=== PATIENT | male | born 2000 | race Caucasian/White ===

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

== ENCOUNTER → 2021-10-10 | Outpatient (CLI) | payer OTHER ==
[~2021-10-10] MED LIST changes: +ATIV1TAB10 PO; +BUSP5TA PO; +FAMO20TA PO; +FLUO10CA18 PO; +FLUO1TAB3 PO; +FLUO40CA PO; +HYDR50TA70 PO; +MED REC COMMENT; +NICO2GUM41 PO; +OLAN1TAB16 PO; -OLAN5TAB PO; +ZIPR80CA30 PO
== END ==
LOC: M CLY 14:21
PROVIDERS: ATTEND Nurse Practitioner Family
DX: M25.572 Pain in left ankle and joints of left foot (principal); M54.2 Cervicalgia

== ENCOUNTER 2021-10-18 17:12 | Emergency (ER) | payer OTHER ==
[~2021-10-18] VITALS: Ht 180.3 cm; Wt 74.4 kg
[~2021-10-18 17:12] MED LIST changes: -ATIV1TAB10 PO; -BUSP5TA PO; -FAMO20TA PO; -FLUO10CA18 PO; -FLUO1TAB3 PO; -FLUO40CA PO; -HYDR50TA70 PO; -MED REC COMMENT; -NICO2GUM41 PO; -ZIPR80CA30 PO
[2021-10-18] MEDS ORDERED: ATIV1TAB10 PO (17:21)
[2021-10-18] MEDS ORDERED: FLUO10CA18 PO (17:21)
[2021-10-18 17:57] LABS: HEMATOCRIT 44.7 % (42.0-52.0); HEMOGLOBIN 15.9 g/dl (13.5-17.5); MEAN CORPUSCULAR HGB CONC 35.6 g/dl (32.0-36.5); MEAN CORPUSCULAR VOLUME 84.3 fl (80.0-96.0); PLATELET COUNT, AUTOMATED 262 10^3/uL (150-450); WHITE BLOOD COUNT 7.3 10^3/uL (4.0-10.0)
[2021-10-18 18:24] LABS: AMPHETAMINES LEVEL URINE NEGATIVE (NEGATIVE); BARBITURATES URINE NEGATIVE (NEGATIVE); BENZODIAZEPINES URINE NEGATIVE (NEGATIVE); CANNABINOIDS URINE POSITIVE (NEGATIVE); COCAINE METABOLITE URINE NEGATIVE (NEGATIVE); METHADONE URINE NEGATIVE (NEGATIVE); OPIATES URINE NEGATIVE (NEGATIVE); PHENCYCLIDINE URINE NEGATIVE (NEGATIVE)
[2021-10-18 18:29] LABS: RSV AMPLIFICATION NEGATIVE (NEGATIVE)
[2021-10-18 18:33] LABS: ACETAMINOPHEN LEVEL < 2.0 UG/ML (10.0-30.0); ALBUMIN 4.3 GM/DL (3.2-5.2); ALT/SGPT 24 U/L (12-78); BILIRUBIN,DIRECT 0.3 MG/DL (0.0-0.2); BILIRUBIN,TOTAL 0.8 MG/DL (0.2-1.0); BLOOD UREA NITROGEN 7 MG/DL (7-18); CALCIUM LEVEL 9.3 MG/DL (8.5-10.1); CARBON DIOXIDE LEVEL 32 MEQ/L (21-32); CHLORIDE LEVEL 110 MEQ/L (98-107); CREATININE FOR GFR 1.18 MG/DL (0.70-1.30); ETHYL ALCOHOL (ETHANOL) < 0.003 % (0.000-0.010); GLUCOSE, FASTING 89 MG/DL (70-100); POTASSIUM SERUM 3.9 MEQ/L (3.5-5.1); SALICYLATE LEVEL < 1.7 MG/DL (5.0-30.0); SODIUM LEVEL 146 MEQ/L (136-145); THYROID STIMULATING HORMONE 0.728 uIU/ML (0.463-3.98); TOTAL PROTEIN 6.8 GM/DL (6.4-8.2)
[2021-10-18] MEDS: LORazepam 0.5 MG TAB PO SCH (20:59)
[2021-10-18] MEDS ORDERED: MED REC COMMENT (21:16)
[2021-10-18] MEDS ORDERED: HOME MED LIST COMPLETE! XX SCH (21:20)
[2021-10-19] MEDS ORDERED: NICOTINE 21MG/24HR 1 EA TRANSDERMAL TD ONE (07:30)
[2021-10-19] MEDS: LORazepam 0.5 MG TAB PO SCH (08:31)
[2021-10-19 08:48] VITALS: BP 140/90
[2021-10-19] MEDS ORDERED: FLUoxetine 10 MG CAP PO SCH (09:00)
[2021-11-01] MEDS ORDERED: ZIPR80CA30 PO (17:37)
[2021-11-01] MEDS ORDERED: HYDR50TA70 PO (17:37)
[2021-11-01] MEDS ORDERED: FLUO1TAB3 PO (17:37)
[2021-11-01] MEDS ORDERED: NICO2GUM41 PO (18:26)
[2021-11-07] MEDS ORDERED: FLUO40CA PO (10:04)
[2021-11-07] MEDS ORDERED: OLAN1TAB16 PO (10:04)
[2021-11-07] MEDS ORDERED: FAMO20TA PO (10:04)
[2021-11-07] MEDS ORDERED: BUSP5TA PO (10:04)
== END 2021-10-19 08:50 ==
LOC: M ED 17:12
DX: F23 Brief psychotic disorder (principal); R44.0 Auditory hallucinations; R00.1 Bradycardia, unspecified; F19.10 Other psychoactive substance abuse, uncomplicated; F12.10 Cannabis abuse, uncomplicated; F14.10 Cocaine abuse, uncomplicated; F17.290 Nicotine dependence, other tobacco product, uncomplicated; Z88.8 Allergy status to other drugs, medicaments and biological substances

== ENCOUNTER → 2021-11-11 | Outpatient (REF) | payer OTHER ==
[~2021-11-11] MED LIST changes: +ATIV1TAB10 PO; +BUSP5TA PO; +FAMO20TA PO; +FLUO10CA18 PO; +FLUO1TAB3 PO; +FLUO40CA PO; +HYDR50TA70 PO; +MED REC COMMENT; +NICO2GUM41 PO; +ZIPR80CA30 PO
[2021-11-12 11:53] LABS: C REACTIVE PROTEIN QUANTITATIV < 0.30 MG/DL (0.00-0.30); RHEUMATOID FACTOR QUANT < 10.0 IU/ML (<15.0)
== END ==
LOC: M SFHCCLAY 14:34
PROVIDERS: ATTEND Nurse Practitioner Family
DX: R52 Pain, unspecified (principal)

== ENCOUNTER 2021-12-21 22:35 | Emergency (ER) | payer OTHER ==
[~2021-12-21] VITALS: Ht 180.3 cm; Wt 74.4 kg
[2021-12-22 11:26] VITALS: BP 131/59
== END 2021-12-22 11:33 | disposition home or self-care (01) ==
LOC: M ED 22:35
DX: S09.90XA Unspecified injury of head, initial encounter (principal); S50.01XA Contusion of right elbow, initial encounter; Y08.89XA Assault by other specified means, initial encounter; Y93.89 Activity, other specified; Y99.9 Unspecified external cause status; F17.200 Nicotine dependence, unspecified, uncomplicated; F17.290 Nicotine dependence, other tobacco product, uncomplicated; Z88.8 Allergy status to other drugs, medicaments and biological substances

== ENCOUNTER 2022-08-24 19:44 | Emergency (ER) | payer MEDICAID, OTHER ==
[2022-08-24 20:36] LABS: HEMATOCRIT 45.9 % (42.0-52.0); HEMOGLOBIN 15.9 g/dl (13.5-17.5); MEAN CORPUSCULAR HEMOGLOBIN 30.1 pg (27.0-33.0); MEAN CORPUSCULAR HGB CONC 34.6 g/dl (32.0-36.5); MEAN CORPUSCULAR VOLUME 86.9 fl (80.0-96.0); PLATELET COUNT, AUTOMATED 282 10^3/uL (150-450); RED BLOOD COUNT 5.28 10^6/uL (4.30-6.10); WHITE BLOOD COUNT 13.9 10^3/uL (4.0-10.0)
[2022-08-24 21:08] LABS: AMPHETAMINES LEVEL URINE NEGATIVE (NEGATIVE)
[2022-08-24 21:09] LABS: BARBITURATES URINE NEGATIVE (NEGATIVE); BENZODIAZEPINES URINE NEGATIVE (NEGATIVE); METHADONE URINE NEGATIVE (NEGATIVE); OPIATES URINE NEGATIVE (NEGATIVE); PHENCYCLIDINE URINE NEGATIVE (NEGATIVE)
[2022-08-24 21:11] LABS: ETHYL ALCOHOL (ETHANOL) 0.006 % (0.000-0.010); RSV AMPLIFICATION NEGATIVE (NEGATIVE)
[2022-08-24 21:13] LABS: ACETAMINOPHEN LEVEL < 2.0 UG/ML (10.0-20.0); ALBUMIN 4.8 G/DL (3.2-5.2); ALKALINE PHOSPHATASE 64 U/L (46-116); ALT/SGPT 34 U/L (7.0-40); AST/SGOT 31 U/L (<34); BILIRUBIN,DIRECT 0.4 MG/DL (<0.4); BILIRUBIN,TOTAL 1.1 MG/DL (0.3-1.2); BLOOD UREA NITROGEN 16 MG/DL (9-23); CALCIUM LEVEL 9.8 MG/DL (8.5-10.1); CARBON DIOXIDE LEVEL 26 MMOL/L (20-31); CHLORIDE LEVEL 104 MMOL/L (98-107); CREATININE FOR GFR 1.15 MG/DL (0.70-1.30); GLOMERULAR FILTRATION RATE > 60.0 (>60); GLUCOSE, FASTING 101 MG/DL (60-100); POTASSIUM SERUM 3.5 MMOL/L (3.5-5.1); SALICYLATE LEVEL < 3.0 MG/DL (<30); SODIUM LEVEL 140 MMOL/L (136-145); TOTAL PROTEIN 7.6 G/DL (5.7-8.2)
[2022-08-24 21:14] LABS: CANNABINOIDS URINE POSITIVE (NEGATIVE); COCAINE METABOLITE URINE POSITIVE (NEGATIVE)
[2022-08-24 21:15] LABS: THYROID STIMULATING HORMONE 1.572 uIU/ML (0.55-4.78)
[2022-08-24] MEDS ORDERED: HOME MED LIST COMPLETE! XX SCH (22:50)
[2022-08-26 10:40] VITALS: BP 130/66
== END 2022-08-26 10:46 ==
LOC: M ED 19:44
DX: R45.851 Suicidal ideations (principal); F32.A Depression, unspecified; K21.9 Gastro-esophageal reflux disease without esophagitis; F41.9 Anxiety disorder, unspecified; Z88.5 Allergy status to narcotic agent

== ENCOUNTER → 2022-09-18 | Outpatient (CLI) | payer OTHER ==
[~2022-09-18] MED LIST changes: -BENZ-52 PO; +BENZ1TAB5 PO
== END ==
LOC: M CLY 15:20
PROVIDERS: ATTEND Nurse Practitioner Family
DX: R06.02 Shortness of breath (principal)

== ENCOUNTER → 2022-09-18 | Outpatient (REF) | payer OTHER ==
[2022-09-18 17:36] LABS: HEMATOCRIT 47.5 % (42.0-52.0); HEMOGLOBIN 15.6 g/dl (13.5-17.5); MEAN CORPUSCULAR HEMOGLOBIN 30.2 pg (27.0-33.0); MEAN CORPUSCULAR HGB CONC 32.8 g/dl (32.0-36.5); MEAN CORPUSCULAR VOLUME 92.1 fl (80.0-96.0); PLATELET COUNT, AUTOMATED 265 10^3/uL (150-450); RED BLOOD COUNT 5.16 10^6/uL (4.30-6.10); WHITE BLOOD COUNT 11.5 10^3/uL (4.0-10.0)
[2022-09-18 18:06] LABS: ALBUMIN 3.9 G/DL (3.2-5.2); ALKALINE PHOSPHATASE 89 U/L (46-116); ALT/SGPT 94 U/L (7.0-40); AST/SGOT 49 U/L (<34); BILIRUBIN,TOTAL 0.5 MG/DL (0.3-1.2); BLOOD UREA NITROGEN 10 MG/DL (9-23); CALCIUM LEVEL 9.7 MG/DL (8.5-10.1); CARBON DIOXIDE LEVEL 31 MMOL/L (20-31); CHLORIDE LEVEL 101 MMOL/L (98-107); CREATININE FOR GFR 0.84 MG/DL (0.70-1.30); GLOMERULAR FILTRATION RATE > 60.0 (>60); GLUCOSE, FASTING 83 MG/DL (60-100); POTASSIUM SERUM 4.5 MMOL/L (3.5-5.1); SODIUM LEVEL 138 MMOL/L (136-145)
== END ==
LOC: M SFHCCLAY 15:09
PROVIDERS: ATTEND Nurse Practitioner Family
DX: R19.7 Diarrhea, unspecified (principal); R06.02 Shortness of breath

== ENCOUNTER 2022-10-05 03:03 | Emergency (ER) | payer OTHER ==
[~2022-10-05] VITALS: Ht 180.3 cm; Wt 85.0 kg
[2022-10-05] MEDS ORDERED: PRAZ1CAP PO (03:15)
[2022-10-05] MEDS ORDERED: MIRT1TAB PO (03:15)
[2022-10-05] MEDS ORDERED: GABA-282 PO (03:15)
[2022-10-05] MEDS ORDERED: LEXA1TAB PO (03:15)
[2022-10-05] MEDS ORDERED: PANT40TA29 PO (03:15)
[2022-10-05] MEDS ORDERED: MELA3TAB49 PO (03:15)
[2022-10-05 05:04] LABS: BASO % 0.3 % (0.0-1.0); EOS # 0.3 10^3/uL (0.0-0.5); EOS % 1.8 % (0.0-3.0); HEMATOCRIT 44.7 % (42.0-52.0); HEMOGLOBIN 15.2 g/dl (13.5-17.5); LYMPH # 2.4 10^3/uL (1.5-5.0); MEAN CORPUSCULAR HEMOGLOBIN 29.9 pg (27.0-33.0); MONO # 0.6 10^3/uL (0.0-0.8); MONO % 4.2 % (2.0-8.0); NEUTROPHILS # 11.6 10^3/uL (1.5-8.5); NEUTROPHILS % 77.2 % (36.0-66.0); PLATELET COUNT, AUTOMATED 292 10^3/uL (150-450); RED BLOOD COUNT 5.08 10^6/uL (4.30-6.10)
[2022-10-05 05:27] LABS: LIPASE 23 U/L (12-53)
[2022-10-05 05:52] LABS: ALBUMIN 4.2 G/DL (3.2-5.2); ALKALINE PHOSPHATASE 77 U/L (46-116); ALT/SGPT 33 U/L (7.0-40); AST/SGOT 34 U/L (<34); BILIRUBIN,DIRECT 0.2 MG/DL (<0.4); BILIRUBIN,TOTAL 0.6 MG/DL (0.3-1.2); BLOOD UREA NITROGEN 14 MG/DL (9-23); CALCIUM LEVEL 9.1 MG/DL (8.5-10.1); CARBON DIOXIDE LEVEL 28 MMOL/L (20-31); CHLORIDE LEVEL 107 MMOL/L (98-107); CREATININE FOR GFR 0.87 MG/DL (0.70-1.30); GLOMERULAR FILTRATION RATE > 60.0 (>60); GLUCOSE, FASTING 111 MG/DL (60-100); POTASSIUM SERUM 3.9 MMOL/L (3.5-5.1); SODIUM LEVEL 143 MMOL/L (136-145); TOTAL PROTEIN 6.8 G/DL (5.7-8.2)
[2022-10-05] MEDS ORDERED: GI COCKTAIL 50ML BTL(HYOSCYAMINE/MAALOX/LIDOCAINE VISCOUS)(1:3:1) PO ONE (06:00)
[2022-10-05] MEDS ORDERED: CARA1TAB6 PO (06:39)
[2022-10-05] MEDS ORDERED: PEPC1TAB5 PO (06:39)
[2022-10-05 06:49] VITALS: BP 138/78
== END 2022-10-05 06:51 | disposition home or self-care (01) ==
LOC: M ED 03:03
DX: K29.70 Gastritis, unspecified, without bleeding (principal); K21.9 Gastro-esophageal reflux disease without esophagitis; F12.10 Cannabis abuse, uncomplicated; Z88.8 Allergy status to other drugs, medicaments and biological substances

== ENCOUNTER 2022-10-21 09:38 | Emergency (ER) | payer OTHER ==
[~2022-10-21] VITALS: Ht 180.3 cm; Wt 77.3 kg
[~2022-10-21 09:38] MED LIST changes: +CARA1TAB6 PO; +GABA-282 PO; +LEXA1TAB PO; +MELA3TAB49 PO; +MIRT1TAB PO; +PANT40TA29 PO; +PEPC1TAB5 PO; +PRAZ1CAP PO
[2022-10-21] MEDS ORDERED: IBUPROFEN 400MG TAB PO PRN (09:50)
[2022-10-21] MEDS ORDERED: ACETAMINOPHEN 500 MG TAB PO PRN (09:50)
[2022-10-21 10:03] LABS: HEMATOCRIT 45.3 % (42.0-52.0); HEMOGLOBIN 15.1 g/dl (13.5-17.5); MEAN CORPUSCULAR HEMOGLOBIN 29.7 pg (27.0-33.0); MEAN CORPUSCULAR HGB CONC 33.3 g/dl (32.0-36.5); MEAN CORPUSCULAR VOLUME 89.2 fl (80.0-96.0); PLATELET COUNT, AUTOMATED 296 10^3/uL (150-450); RED BLOOD COUNT 5.08 10^6/uL (4.30-6.10); WHITE BLOOD COUNT 11.6 10^3/uL (4.0-10.0)
[2022-10-21] MEDS ORDERED: GABAPENTIN 300 MG CAP PO ONE (10:10)
[2022-10-21] MEDS ORDERED: ESCITALOPRAM OXALATE 10 MG TAB (LEXAPRO) PO ONE (10:10)
[2022-10-21 10:15] VITALS: BP 128/75
[2022-10-21 10:33] LABS: AMPHETAMINES LEVEL URINE NEGATIVE (NEGATIVE); BARBITURATES URINE NEGATIVE (NEGATIVE); BENZODIAZEPINES URINE NEGATIVE (NEGATIVE); COCAINE METABOLITE URINE NEGATIVE (NEGATIVE); ETHYL ALCOHOL (ETHANOL) < 0.003 % (0.000-0.010)
[2022-10-21 10:34] LABS: ACETAMINOPHEN LEVEL < 2.0 UG/ML (10.0-20.0); CANNABINOIDS URINE POSITIVE (NEGATIVE); METHADONE URINE NEGATIVE (NEGATIVE); OPIATES URINE NEGATIVE (NEGATIVE); PHENCYCLIDINE URINE NEGATIVE (NEGATIVE)
[2022-10-21 10:35] LABS: ALBUMIN 4.1 G/DL (3.2-5.2); ALKALINE PHOSPHATASE 80 U/L (46-116); ALT/SGPT 35 U/L (7.0-40); AST/SGOT 29 U/L (<34); BILIRUBIN,DIRECT 0.2 MG/DL (<0.4); BILIRUBIN,TOTAL 0.5 MG/DL (0.3-1.2); BLOOD UREA NITROGEN 10 MG/DL (9-23); CARBON DIOXIDE LEVEL 28 MMOL/L (20-31); CHLORIDE LEVEL 108 MMOL/L (98-107); CREATININE FOR GFR 0.91 MG/DL (0.70-1.30); GLOMERULAR FILTRATION RATE > 60.0 (>60); GLUCOSE, FASTING 103 MG/DL (60-100); POTASSIUM SERUM 3.9 MMOL/L (3.5-5.1); SALICYLATE LEVEL < 3.0 MG/DL (<30); SODIUM LEVEL 141 MMOL/L (136-145); TOTAL PROTEIN 6.5 G/DL (5.7-8.2)
[2022-10-21 10:38] LABS: THYROID STIMULATING HORMONE 1.182 uIU/ML (0.55-4.78)
[2022-10-21] MEDS ORDERED: ALBU6.7H6 INH (16:24)
[2022-10-21] MEDS ORDERED: KAOP262S PO (16:24)
[2022-10-21] MEDS ORDERED: ATOR40TA75 PO (16:24)
[2022-10-21] MEDS ORDERED: ASPI-404 PO (16:24)
[2022-10-21] MEDS ORDERED: FURO20TA2 PO (16:24)
[2022-10-21] MEDS ORDERED: [UNRECOGNIZED DRUG - CODE] PO (16:24)
[2022-10-21] MEDS ORDERED: ACET-907 PO (16:24)
[2022-10-21] MEDS ORDERED: HEPA500057 SC (16:24)
[2022-10-21] MEDS ORDERED: COLA100C5 PO (16:24)
[2022-10-21] MEDS ORDERED: ONDA4TAB6 PO (16:32)
[2022-10-21] MEDS ORDERED: INSUHUMDS SC (16:32)
[2022-10-21] MEDS ORDERED: TOPR50TA PO (16:32)
[2022-10-21] MEDS ORDERED: MELA3TAB49 PO (17:13)
[2022-10-21] MEDS ORDERED: LEXA1TAB PO (17:13)
[2022-10-21] MEDS ORDERED: SUCR1TAB56 PO (17:13)
[2022-10-21] MEDS ORDERED: PRAZ1CAP PO (17:13)
[2022-10-21] MEDS ORDERED: GABA-282 PO (17:13)
[2022-10-21] MEDS ORDERED: MIRT1TAB PO (17:13)
[2022-10-21] MEDS ORDERED: FAMO1TAB11 PO (17:13)
[2022-10-21] MEDS ORDERED: PANT-23 PO (17:13)
== END 2022-10-21 10:20 | disposition home or self-care (01) ==
LOC: M ED 09:38
DX: S60.519A Abrasion of unspecified hand, initial encounter (principal); S80.219A Abrasion, unspecified knee, initial encounter; Y35.93XA Legal intervention, means unspecified, suspect injured, initial encounter; Y92.410 Unspecified street and highway as the place of occurrence of the external cause; F41.9 Anxiety disorder, unspecified; F32.9 Major depressive disorder, single episode, unspecified; K21.9 Gastro-esophageal reflux disease without esophagitis; Z79.899 Other long term (current) drug therapy; Z88.8 Allergy status to other drugs, medicaments and biological substances

== ENCOUNTER 2022-10-21 15:18 | Inpatient (IN) | payer MEDICAID, OTHER ==
[~2022-10-21] VITALS: Ht 180.3 cm; Wt 77.3 kg
[2022-10-21] MEDS ORDERED: ATOR40TA75 PO (16:24)
[2022-10-21] MEDS ORDERED: ACET-907 PO (16:24)
[2022-10-21] MEDS ORDERED: ALBU6.7H6 INH (16:24)
[2022-10-21] MEDS ORDERED: KAOP262S PO (16:24)
[2022-10-21] MEDS ORDERED: [UNRECOGNIZED DRUG - CODE] PO (16:24)
[2022-10-21] MEDS ORDERED: HEPA500057 SC (16:24)
[2022-10-21] MEDS ORDERED: COLA100C5 PO (16:24)
[2022-10-21] MEDS ORDERED: FURO20TA2 PO (16:24)
[2022-10-21] MEDS ORDERED: ASPI-404 PO (16:24)
[2022-10-21] MEDS ORDERED: INSUHUMDS SC (16:32)
[2022-10-21] MEDS ORDERED: TOPR50TA PO (16:32)
[2022-10-21] MEDS ORDERED: ONDA4TAB6 PO (16:32)
[2022-10-21] MEDS ORDERED: MIRT1TAB PO (17:13)
[2022-10-21] MEDS ORDERED: PANT-23 PO (17:13)
[2022-10-21] MEDS ORDERED: LEXA1TAB PO (17:13)
[2022-10-21] MEDS ORDERED: MELA3TAB49 PO (17:13)
[2022-10-21] MEDS ORDERED: GABA-282 PO (17:13)
[2022-10-21] MEDS ORDERED: FAMO1TAB11 PO (17:13)
[2022-10-21] MEDS ORDERED: PRAZ1CAP PO (17:13)
[2022-10-21] MEDS ORDERED: SUCR1TAB56 PO (17:13)
[2022-10-21] MEDS ORDERED: HOME MED LIST COMPLETE! XX SCH (18:40)
[2022-10-21] MEDS: LORazepam 2 MG TAB PO PRN (19:13)
[2022-10-21] MEDS: MIRTAZAPINE 7.5MG PER 1/2 TABLET PO SCH (20:08)
[2022-10-21] MEDS: SUCRALFATE 1 GM TAB PO SCH (20:12)
[2022-10-21] MEDS: GABAPENTIN 300 MG CAP PO SCH (20:12)
[2022-10-21] MEDS: PRAZOSIN 1 MG CAP PO SCH (20:13)
[2022-10-22] MEDS: PANTOPRAZOLE 40MG TAB (PROTONIX) PO SCH (08:42)
[2022-10-22] MEDS: ESCITALOPRAM OXALATE 10 MG TAB (LEXAPRO) PO SCH (08:42)
[2022-10-22] MEDS: GABAPENTIN 300 MG CAP PO SCH ×3 (08:42→20:50)
[2022-10-22] MEDS: FAMOTIDINE 20 MG TAB PO SCH (08:42)
[2022-10-22] MEDS: SUCRALFATE 1 GM TAB PO SCH ×4 (08:42→20:50)
[2022-10-22] MEDS: LORazepam 2 MG TAB PO PRN (12:18)
[2022-10-22] MEDS ORDERED: NEOSPORIN OINT 0.9 GM PKT TOP ONE (14:25)
[2022-10-22] MEDS ORDERED: ACETAMINOPHEN TAB 650MG DOSE (2X325MG) PO ONE (20:05)
[2022-10-22] MEDS: MIRTAZAPINE 7.5MG PER 1/2 TABLET PO SCH (20:50)
[2022-10-22] MEDS: PRAZOSIN 1 MG CAP PO SCH (20:50)
[2022-10-23] MEDS: LORazepam 2 MG TAB PO PRN (02:22)
[2022-10-23] MEDS ORDERED: LORazepam 1 MG TAB PO STA (06:24)
[2022-10-23] MEDS ORDERED: INFLUENZA QUADRIVALENT PF VACCINE 0.5ML SYRINGE IM.IMMUN ONE (09:00)
[2022-10-23] MEDS ORDERED: OLANZapine ORAL DISINTEGRATING TAB 5MG PO ONE (09:05)
[2022-10-23] MEDS: ESCITALOPRAM OXALATE 10 MG TAB (LEXAPRO) PO SCH (09:14)
[2022-10-23] MEDS: GABAPENTIN 300 MG CAP PO SCH ×3 (09:14→20:09)
[2022-10-23] MEDS: FAMOTIDINE 20 MG TAB PO SCH (09:14)
[2022-10-23] MEDS: PANTOPRAZOLE 40MG TAB (PROTONIX) PO SCH (09:14)
[2022-10-23] MEDS: SUCRALFATE 1 GM TAB PO SCH ×4 (09:14→20:09)
[2022-10-23 09:25] VITALS: BP 150/86
[2022-10-23] MEDS ORDERED: MOM 30ML SUSPENSION UDC PO PRN (10:20)
[2022-10-23] MEDS: NICOTINE 21MG/24HR 1 EA TRANSDERMAL TD SCH (10:54)
[2022-10-23] MEDS: IBUPROFEN 400MG TAB PO PRN ×2 (14:38→22:10)
[2022-10-23 16:47] VITALS: BP 149/79
[2022-10-23] MEDS: PRAZOSIN 1 MG CAP PO SCH (20:09)
[2022-10-23] MEDS: MIRTAZAPINE 7.5MG PER 1/2 TABLET PO SCH (20:09)
[2022-10-23] MEDS: traZODone 50 MG TAB PO PRN (21:26)
[2022-10-23] MEDS: diphenhydrAMINE 25MG CAP PO PRN (21:26)
[2022-10-24] MEDS: MAALOX 30 ML SUSP *UDC PO PRN
[2022-10-24] MEDS: IBUPROFEN 400MG TAB PO PRN ×2 (06:19→20:08)
[2022-10-24 06:38] VITALS: BP 151/58
[2022-10-24] MEDS: SUCRALFATE 1 GM TAB PO SCH ×4 (06:48→20:09)
[2022-10-24] MEDS: PANTOPRAZOLE 40MG TAB (PROTONIX) PO SCH (08:17)
[2022-10-24] MEDS: NICOTINE 21MG/24HR 1 EA TRANSDERMAL TD SCH ×2 (08:18→10:01)
[2022-10-24] MEDS: ESCITALOPRAM OXALATE 10 MG TAB (LEXAPRO) PO SCH (08:18)
[2022-10-24] MEDS: GABAPENTIN 300 MG CAP PO SCH (08:18)
[2022-10-24 08:42] LABS: CHOLESTEROL LEVEL 122 MG/DL (<200); CHOLESTEROL RISK RATIO 2.84 (<5); HDL CHOLESTEROL 42.9 MG/DL (>40); LDL CHOLESTEROL 67.3 MG/DL (<100); NON-HDL-C 79.1 MG/DL; TRIGLYCERIDES LEVEL 59 MG/DL (<150)
[2022-10-24] MEDS ORDERED: FAMOTIDINE 20 MG TAB PO SCH (09:00)
[2022-10-24] MEDS: OLANZapine 5 MG TAB PO SCH (11:33)
[2022-10-24] MEDS: GABAPENTIN 400MG CAP PO SCH ×2 (15:30→20:09)
[2022-10-24 16:43] VITALS: BP 136/72
[2022-10-24] MEDS: PRAZOSIN 1 MG CAP PO SCH (20:09)
[2022-10-24] MEDS: MIRTAZAPINE 7.5MG PER 1/2 TABLET PO SCH (22:35)
[2022-10-24] MEDS: traZODone 50 MG TAB PO PRN (22:35)
[2022-10-25] MEDS: IBUPROFEN 400MG TAB PO PRN ×2 (06:36→22:16)
[2022-10-25] MEDS: SUCRALFATE 1 GM TAB PO SCH ×4 (06:36→20:42)
[2022-10-25 06:52] VITALS: BP 137/70
[2022-10-25] MEDS: GABAPENTIN 400MG CAP PO SCH ×3 (09:05→20:42)
[2022-10-25] MEDS: PANTOPRAZOLE 40MG TAB (PROTONIX) PO SCH (09:06)
[2022-10-25] MEDS: ESCITALOPRAM OXALATE 10 MG TAB (LEXAPRO) PO SCH (09:06)
[2022-10-25] MEDS: OLANZapine 5 MG TAB PO SCH (09:06)
[2022-10-25] MEDS: NICOTINE 21MG/24HR 1 EA TRANSDERMAL TD SCH (09:06)
[2022-10-25] MEDS: OLANZapine ORAL DISINTEGRATING TAB 5MG PO PRN (13:21)
[2022-10-25 13:51] LABS: BASO % 0.3 % (0.0-1.0); EOS # 0.2 10^3/uL (0.0-0.5); HEMATOCRIT 45.9 % (42.0-52.0); HEMOGLOBIN 15.6 g/dl (13.5-17.5); LYMPH # 2.4 10^3/uL (1.5-5.0); LYMPH % 30.2 % (24.0-44.0); MEAN CORPUSCULAR HEMOGLOBIN 30.3 pg (27.0-33.0); MEAN CORPUSCULAR VOLUME 89.1 fl (80.0-96.0); MONO # 0.5 10^3/uL (0.0-0.8); MONO % 6.2 % (2.0-8.0); NEUTROPHILS # 4.7 10^3/uL (1.5-8.5); PLATELET COUNT, AUTOMATED 267 10^3/uL (150-450); RED BLOOD COUNT 5.15 10^6/uL (4.30-6.10); WHITE BLOOD COUNT 7.9 10^3/uL (4.0-10.0)
[2022-10-25 15:33] LABS: ALBUMIN 4.3 G/DL (3.2-5.2); ALKALINE PHOSPHATASE 97 U/L (46-116); ALT/SGPT 32 U/L (7.0-40); AST/SGOT 32 U/L (<34); BILIRUBIN,TOTAL 0.4 MG/DL (0.3-1.2); BLOOD UREA NITROGEN 17 MG/DL (9-23); CALCIUM LEVEL 8.7 MG/DL (8.5-10.1); CARBON DIOXIDE LEVEL 32 MMOL/L (20-31); CHLORIDE LEVEL 105 MMOL/L (98-107); CREATININE FOR GFR 0.98 MG/DL (0.70-1.30); GLOMERULAR FILTRATION RATE > 60.0 (>60); GLUCOSE, FASTING 72 MG/DL (60-100); SODIUM LEVEL 143 MMOL/L (136-145); TOTAL PROTEIN 6.8 G/DL (5.7-8.2)
[2022-10-25] MEDS: FIDAXOMICIN 200 MG TAB (DIFICID) PO SCH ×2 (15:35→21:48)
[2022-10-25 16:55] VITALS: BP 148/73
[2022-10-25] MEDS: MIRTAZAPINE 7.5MG PER 1/2 TABLET PO SCH (20:42)
[2022-10-25] MEDS: PRAZOSIN 1 MG CAP PO SCH (20:42)
[2022-10-25] MEDS: traZODone 50 MG TAB PO PRN (21:48)
[2022-10-26] MEDS: SUCRALFATE 1 GM TAB PO SCH ×4 (06:39→21:01)
[2022-10-26] MEDS: OLANZapine ORAL DISINTEGRATING TAB 5MG PO PRN (07:23)
[2022-10-26] MEDS: IBUPROFEN 400MG TAB PO PRN ×2 (07:24→21:03)
[2022-10-26] MEDS ORDERED: OLANZapine 10 MG TAB PO SCH (09:00)
[2022-10-26] MEDS: ESCITALOPRAM OXALATE 10 MG TAB (LEXAPRO) PO SCH (09:14)
[2022-10-26] MEDS: PANTOPRAZOLE 40MG TAB (PROTONIX) PO SCH (09:14)
[2022-10-26] MEDS: GABAPENTIN 400MG CAP PO SCH ×3 (09:14→21:01)
[2022-10-26] MEDS: FIDAXOMICIN 200 MG TAB (DIFICID) PO SCH ×2 (09:15→21:01)
[2022-10-26] MEDS: NICOTINE 21MG/24HR 1 EA TRANSDERMAL TD SCH (09:15)
[2022-10-26] MEDS: diphenhydrAMINE 25MG CAP PO PRN (11:02)
[2022-10-26 13:15] LABS: GC DNA AMPLIFICATION NEGATIVE (NEGATIVE)
[2022-10-26 18:34] VITALS: BP 151/74
[2022-10-26] MEDS: traZODone 50 MG TAB PO PRN (21:01)
[2022-10-26] MEDS: PRAZOSIN 1 MG CAP PO SCH (21:01)
[2022-10-26] MEDS: MIRTAZAPINE 7.5MG PER 1/2 TABLET PO SCH (21:01)
[2022-10-26] MEDS: OLANZapine 10 MG TAB PO SCH (21:01)
[2022-10-27 06:36] VITALS: BP 144/80
[2022-10-27] MEDS: SUCRALFATE 1 GM TAB PO SCH ×4 (06:36→20:44)
[2022-10-27] MEDS: OLANZapine 10 MG TAB PO SCH (09:35)
[2022-10-27] MEDS: ESCITALOPRAM OXALATE 10 MG TAB (LEXAPRO) PO SCH (09:35)
[2022-10-27] MEDS: PANTOPRAZOLE 40MG TAB (PROTONIX) PO SCH (09:35)
[2022-10-27] MEDS: FIDAXOMICIN 200 MG TAB (DIFICID) PO SCH ×2 (09:35→20:45)
[2022-10-27] MEDS: GABAPENTIN 400MG CAP PO SCH ×3 (09:35→20:44)
[2022-10-27] MEDS: diphenhydrAMINE 25MG CAP PO PRN (09:35)
[2022-10-27] MEDS: NICOTINE 21MG/24HR 1 EA TRANSDERMAL TD SCH (09:40)
[2022-10-27] MEDS ORDERED: HALOPERIDOL DECANOATE 100 MG/ML 1ML VIAL IM ONE (10:50)
[2022-10-27] MEDS ORDERED: BENZTROPINE 1 MG TAB PO PRN (10:50)
[2022-10-27] MEDS: OLANZapine ORAL DISINTEGRATING TAB 5MG PO PRN (13:04)
[2022-10-27] MEDS: MIRTAZAPINE 7.5MG PER 1/2 TABLET PO SCH (20:44)
[2022-10-27] MEDS: traZODone 50 MG TAB PO PRN (20:44)
[2022-10-27] MEDS: OLANZapine 5 MG TAB PO SCH (20:45)
[2022-10-27] MEDS: PRAZOSIN 1 MG CAP PO SCH (20:45)
[2022-10-27] MEDS: IBUPROFEN 400MG TAB PO PRN (22:36)
[2022-10-28 06:12] VITALS: BP 153/84
[2022-10-28] MEDS: SUCRALFATE 1 GM TAB PO SCH ×4 (06:30→21:12)
[2022-10-28] MEDS: IBUPROFEN 400MG TAB PO PRN ×2 (06:32→18:18)
[2022-10-28] MEDS: ESCITALOPRAM OXALATE 10 MG TAB (LEXAPRO) PO SCH (09:17)
[2022-10-28] MEDS: FIDAXOMICIN 200 MG TAB (DIFICID) PO SCH ×2 (09:17→21:12)
[2022-10-28] MEDS: PANTOPRAZOLE 40MG TAB (PROTONIX) PO SCH (09:17)
[2022-10-28] MEDS: NICOTINE 21MG/24HR 1 EA TRANSDERMAL TD SCH (09:17)
[2022-10-28] MEDS: GABAPENTIN 400MG CAP PO SCH ×3 (09:18→21:12)
[2022-10-28] MEDS: OLANZapine 5 MG TAB PO SCH ×2 (09:18→21:12)
[2022-10-28] MEDS: OLANZapine ORAL DISINTEGRATING TAB 5MG PO PRN (13:11)
[2022-10-28 18:03] VITALS: BP 141/83
[2022-10-28] MEDS: PRAZOSIN 1 MG CAP PO SCH (21:12)
[2022-10-28] MEDS: MIRTAZAPINE 7.5MG PER 1/2 TABLET PO SCH (21:12)
[2022-10-28] MEDS: traZODone 50 MG TAB PO PRN (21:13)
[2022-10-29] MEDS: MAALOX 30 ML SUSP *UDC PO PRN (04:11)
[2022-10-29] MEDS: IBUPROFEN 400MG TAB PO PRN ×2 (04:15→10:31)
[2022-10-29] MEDS: SUCRALFATE 1 GM TAB PO SCH ×4 (06:35→20:48)
[2022-10-29] MEDS: OLANZapine 5 MG TAB PO SCH ×2 (08:53→20:48)
[2022-10-29] MEDS: NICOTINE 21MG/24HR 1 EA TRANSDERMAL TD SCH (08:53)
[2022-10-29] MEDS: ESCITALOPRAM OXALATE 10 MG TAB (LEXAPRO) PO SCH (08:53)
[2022-10-29] MEDS: PANTOPRAZOLE 40MG TAB (PROTONIX) PO SCH (08:53)
[2022-10-29] MEDS: GABAPENTIN 400MG CAP PO SCH ×3 (08:53→20:48)
[2022-10-29] MEDS: FIDAXOMICIN 200 MG TAB (DIFICID) PO SCH ×2 (08:54→20:48)
[2022-10-29] MEDS: diphenhydrAMINE 25MG CAP PO PRN (16:12)
[2022-10-29] MEDS: OLANZapine ORAL DISINTEGRATING TAB 5MG PO PRN (17:48)
[2022-10-29 19:12] VITALS: BP 142/86
[2022-10-29] MEDS: MIRTAZAPINE 7.5MG PER 1/2 TABLET PO SCH (20:48)
[2022-10-29] MEDS: PRAZOSIN 1 MG CAP PO SCH (20:49)
[2022-10-30] MEDS: IBUPROFEN 400MG TAB PO PRN ×3 (01:47→16:31)
[2022-10-30] MEDS: diphenhydrAMINE 25MG CAP PO PRN ×2 (01:47→11:52)
[2022-10-30] MEDS: SUCRALFATE 1 GM TAB PO SCH ×4 (06:35→21:12)
[2022-10-30] MEDS: GABAPENTIN 400MG CAP PO SCH ×3 (08:04→21:12)
[2022-10-30] MEDS: PANTOPRAZOLE 40MG TAB (PROTONIX) PO SCH (08:04)
[2022-10-30] MEDS: ESCITALOPRAM OXALATE 10 MG TAB (LEXAPRO) PO SCH (08:04)
[2022-10-30] MEDS: OLANZapine 5 MG TAB PO SCH ×2 (08:04→21:12)
[2022-10-30] MEDS: FIDAXOMICIN 200 MG TAB (DIFICID) PO SCH ×2 (08:04→21:12)
[2022-10-30] MEDS: NICOTINE 21MG/24HR 1 EA TRANSDERMAL TD SCH (08:07)
[2022-10-30 08:28] VITALS: BP 152/81
[2022-10-30 09:39] LABS: BASO # 0.1 10^3/uL (0.0-0.2); BASO % 0.6 % (0.0-1.0); EOS # 0.2 10^3/uL (0.0-0.5); EOS % 2.7 % (0.0-3.0); HEMATOCRIT 46.5 % (42.0-52.0); HEMOGLOBIN 15.4 g/dl (13.5-17.5); LYMPH # 2.1 10^3/uL (1.5-5.0); LYMPH % 25.2 % (24.0-44.0); MEAN CORPUSCULAR HEMOGLOBIN 29.8 pg (27.0-33.0); MEAN CORPUSCULAR HGB CONC 33.1 g/dl (32.0-36.5); MEAN CORPUSCULAR VOLUME 89.9 fl (80.0-96.0); MONO # 0.8 10^3/uL (0.0-0.8); MONO % 9.9 % (2.0-8.0); NEUTROPHILS % 60.7 % (36.0-66.0); PLATELET COUNT, AUTOMATED 235 10^3/uL (150-450); RED BLOOD COUNT 5.17 10^6/uL (4.30-6.10); WHITE BLOOD COUNT 8.2 10^3/uL (4.0-10.0)
[2022-10-30] MEDS: OLANZapine ORAL DISINTEGRATING TAB 5MG PO PRN ×2 (09:54→21:17)
[2022-10-30 10:25] LABS: BLOOD UREA NITROGEN 16 MG/DL (9-23); CALCIUM LEVEL 9.5 MG/DL (8.5-10.1); CARBON DIOXIDE LEVEL 31 MMOL/L (20-31); CHLORIDE LEVEL 106 MMOL/L (98-107); CREATININE FOR GFR 0.89 MG/DL (0.70-1.30); GLOMERULAR FILTRATION RATE > 60.0 (>60); GLUCOSE, FASTING 93 MG/DL (60-100); SODIUM LEVEL 142 MMOL/L (136-145)
[2022-10-30] MEDS: BENZOCAINE 10% 9GM TUBE (ANBESOL) MT SCH ×3 (12:02→21:12)
[2022-10-30] MEDS: traZODone 50 MG TAB PO PRN (21:12)
[2022-10-30] MEDS: PRAZOSIN 1 MG CAP PO SCH (21:12)
[2022-10-30] MEDS: MIRTAZAPINE 7.5MG PER 1/2 TABLET PO SCH (21:12)
[2022-10-31] MEDS: SUCRALFATE 1 GM TAB PO SCH ×4 (06:31→20:39)
[2022-10-31 06:38] VITALS: BP 140/98
[2022-10-31] MEDS: NICOTINE 21MG/24HR 1 EA TRANSDERMAL TD SCH (09:00)
[2022-10-31] MEDS: BENZOCAINE 10% 9GM TUBE (ANBESOL) MT SCH ×4 (09:35→20:39)
[2022-10-31] MEDS: GABAPENTIN 400MG CAP PO SCH ×3 (09:35→20:39)
[2022-10-31] MEDS: PANTOPRAZOLE 40MG TAB (PROTONIX) PO SCH (09:35)
[2022-10-31] MEDS: OLANZapine 5 MG TAB PO SCH ×2 (09:35→20:39)
[2022-10-31] MEDS: ESCITALOPRAM OXALATE 10 MG TAB (LEXAPRO) PO SCH (09:35)
[2022-10-31] MEDS: FIDAXOMICIN 200 MG TAB (DIFICID) PO SCH ×2 (09:35→20:39)
[2022-10-31] MEDS ORDERED: HALOPERIDOL DECANOATE 100 MG/ML 1ML VIAL IM ONE (11:00)
[2022-10-31] MEDS: OLANZapine ORAL DISINTEGRATING TAB 5MG PO PRN (13:32)
[2022-10-31] MEDS: IBUPROFEN 400MG TAB PO PRN (13:35)
[2022-10-31] MEDS: MIRTAZAPINE 7.5MG PER 1/2 TABLET PO SCH (20:39)
[2022-10-31] MEDS: PRAZOSIN 1 MG CAP PO SCH (20:39)
[2022-10-31] MEDS: traZODone 50 MG TAB PO PRN (20:39)
[2022-10-31] MEDS: CHLORASEPTIC SPRAY MT PRN (20:40)
[2022-11-01 06:39] VITALS: BP 146/71
[2022-11-01] MEDS: SUCRALFATE 1 GM TAB PO SCH ×4 (06:41→21:24)
[2022-11-01] MEDS: NICOTINE 21MG/24HR 1 EA TRANSDERMAL TD SCH (09:00)
[2022-11-01] MEDS: OLANZapine 5 MG TAB PO SCH ×2 (09:15→21:23)
[2022-11-01] MEDS: ESCITALOPRAM OXALATE 10 MG TAB (LEXAPRO) PO SCH (09:15)
[2022-11-01] MEDS: FIDAXOMICIN 200 MG TAB (DIFICID) PO SCH ×2 (09:15→21:23)
[2022-11-01] MEDS: GABAPENTIN 400MG CAP PO SCH ×3 (09:15→21:23)
[2022-11-01] MEDS: PANTOPRAZOLE 40MG TAB (PROTONIX) PO SCH (09:15)
[2022-11-01] MEDS: BENZOCAINE 10% 9GM TUBE (ANBESOL) MT SCH ×4 (09:15→21:24)
[2022-11-01] MEDS: CHLORASEPTIC SPRAY MT PRN (09:16)
[2022-11-01] MEDS: IBUPROFEN 400MG TAB PO PRN (11:05)
[2022-11-01 15:11] LABS: FATS NEUTRAL Normal (.); FATS TOTAL Normal (.); PANCREATIC ELASTASE STOOL >500 (>200)
[2022-11-01] MEDS: traZODone 50 MG TAB PO PRN (21:23)
[2022-11-01] MEDS: PRAZOSIN 1 MG CAP PO SCH (21:23)
[2022-11-01] MEDS: MIRTAZAPINE 7.5MG PER 1/2 TABLET PO SCH (21:24)
[2022-11-01] MEDS: OLANZapine ORAL DISINTEGRATING TAB 5MG PO PRN (21:30)
[2022-11-02 06:33] VITALS: BP 130/80
[2022-11-02] MEDS: SUCRALFATE 1 GM TAB PO SCH ×4 (06:33→21:40)
[2022-11-02] MEDS: NICOTINE 21MG/24HR 1 EA TRANSDERMAL TD SCH (07:54)
[2022-11-02] MEDS: CHLORASEPTIC SPRAY MT PRN (07:54)
[2022-11-02] MEDS: OLANZapine 5 MG TAB PO SCH (07:55)
[2022-11-02] MEDS: GABAPENTIN 400MG CAP PO SCH ×3 (07:55→21:35)
[2022-11-02] MEDS: PANTOPRAZOLE 40MG TAB (PROTONIX) PO SCH (07:55)
[2022-11-02] MEDS: BENZOCAINE 10% 9GM TUBE (ANBESOL) MT SCH ×4 (07:55→21:35)
[2022-11-02] MEDS: FIDAXOMICIN 200 MG TAB (DIFICID) PO SCH ×2 (07:55→21:40)
[2022-11-02] MEDS: ESCITALOPRAM OXALATE 10 MG TAB (LEXAPRO) PO SCH (07:55)
[2022-11-02] MEDS: diphenhydrAMINE 25MG CAP PO PRN (09:49)
[2022-11-02] MEDS: OLANZapine ORAL DISINTEGRATING TAB 5MG PO PRN (14:13)
[2022-11-02] MEDS: IBUPROFEN 400MG TAB PO PRN (14:14)
[2022-11-02 17:58] VITALS: BP 158/78
[2022-11-02 21:39] VITALS: BP 138/84
[2022-11-02] MEDS: PRAZOSIN 1 MG CAP PO SCH (21:39)
[2022-11-02] MEDS: AMOXICILLIN 500 MG CAP PO SCH (21:40)
[2022-11-02] MEDS: BENZTROPINE 1 MG TAB PO SCH (21:40)
[2022-11-02] MEDS: MIRTAZAPINE 7.5MG PER 1/2 TABLET PO SCH (21:40)
[2022-11-03] MEDS: SUCRALFATE 1 GM TAB PO SCH ×2 (06:45→11:52)
[2022-11-03 06:48] VITALS: BP 140/80
[2022-11-03] MEDS: CHLORASEPTIC SPRAY MT PRN (08:15)
[2022-11-03] MEDS: GABAPENTIN 400MG CAP PO SCH (08:15)
[2022-11-03] MEDS: FIDAXOMICIN 200 MG TAB (DIFICID) PO SCH (08:15)
[2022-11-03] MEDS: BENZTROPINE 1 MG TAB PO SCH (08:15)
[2022-11-03] MEDS: AMOXICILLIN 500 MG CAP PO SCH (08:15)
[2022-11-03] MEDS: ESCITALOPRAM OXALATE 10 MG TAB (LEXAPRO) PO SCH (08:15)
[2022-11-03] MEDS: BENZOCAINE 10% 9GM TUBE (ANBESOL) MT SCH ×2 (08:15→13:00)
[2022-11-03] MEDS: PANTOPRAZOLE 40MG TAB (PROTONIX) PO SCH (08:16)
[2022-11-03] MEDS: NICOTINE 21MG/24HR 1 EA TRANSDERMAL TD SCH (08:21)
[2022-11-03] MEDS ORDERED: PRAZ1CAP PO (10:51)
[2022-11-03] MEDS ORDERED: CHLORSP MT (10:51)
[2022-11-03] MEDS ORDERED: MIRT1TAB PO (10:51)
[2022-11-03] MEDS ORDERED: BENZ1TAB5 PO (10:51)
[2022-11-03] MEDS ORDERED: Benzocaine Gel MT (10:51)
[2022-11-03] MEDS ORDERED: LEXA1TAB2 PO (10:51)
[2022-11-03] MEDS ORDERED: TRAZ-252 PO (10:51)
[2022-11-03] MEDS ORDERED: NICO21PAT TD (10:51)
[2022-11-03] MEDS ORDERED: HALD100I2 IM (10:51)
[2022-11-03] MEDS ORDERED: HALO5TAB33 PO (10:51)
[2022-11-03] MEDS ORDERED: FIDA200TA PO (11:10)
[2022-11-03] MEDS ORDERED: AMOX500C PO (11:10)
[2022-11-03] MEDS: OLANZapine ORAL DISINTEGRATING TAB 5MG PO PRN (11:52)
[2022-11-03] MEDS: diphenhydrAMINE 25MG CAP PO PRN (11:56)
[2022-11-03 18:07] LABS: BODY FLUID CULTURE Not indicated. (.); LEGIONELLA ANTIGEN URINE Negative (Negative); ORGANISM ID Not indicated. (.); SPECIMEN SOURCE Urine (.); URINE STREP PNEUMONIAE ANTIGEN Negative (Negative)
== END 2022-11-03 13:03 | disposition home or self-care (01) | DRG 750 ==
LOC: M ED 15:18 → M ED INP 10-23 10:16 → M PSY 10-23 14:21
PROVIDERS: ADMIT Student in an Organized Health Care Education/Training Program; ATTEND Student in an Organized Health Care Education/Training Program
DX: F20.9 Schizophrenia, unspecified (principal); A04.72 Enterocolitis due to Clostridium difficile, not specified as recurrent; R45.850 Homicidal ideations; Z59.00 Homelessness unspecified; R45.851 Suicidal ideations; F41.9 Anxiety disorder, unspecified; F12.10 Cannabis abuse, uncomplicated; K21.9 Gastro-esophageal reflux disease without esophagitis; K29.70 Gastritis, unspecified, without bleeding; F45.1 Undifferentiated somatoform disorder; J02.0 Streptococcal pharyngitis; Z79.899 Other long term (current) drug therapy; Z88.8 Allergy status to other drugs, medicaments and biological substances

== ENCOUNTER 2022-11-15 09:10 | Inpatient (IN) | payer MEDICAID ==
[~2022-11-15] VITALS: Ht 180.3 cm; Wt 81.4 kg
[~2022-11-15 09:10] MED LIST changes: +ACET-907 PO; +ALBU6.7H6 INH; +AMOX500C PO; +ASPI-404 PO; +ATOR40TA75 PO; +Benzocaine Gel MT; +CHLORSP MT; +COLA100C5 PO; +FAMO1TAB11 PO; +FIDA200TA PO; +FURO20TA2 PO; +HALD100I2 IM; +HALO5TAB33 PO; +HEPA500057 SC; +INSUHUMDS SC; +KAOP262S PO; +LEXA1TAB2 PO; +ONDA4TAB6 PO; +PANT-23 PO; +SUCR1TAB56 PO; +TOPR50TA PO; +[UNRECOGNIZED DRUG - CODE] PO
[2022-11-15] MEDS ORDERED: NS 1,000 ML IV ONE (09:25)
[2022-11-15] MEDS ORDERED: LORazepam 2 MG/ML 1ML VIAL IV STA (09:28)
[2022-11-15] MEDS ORDERED: ONDANSETRON 4MG 2ML VIAL IV ONE (09:30)
[2022-11-15 10:10] LABS: BASO % 0.4 % (0.0-1.0); EOS # 0.1 10^3/uL (0.0-0.5); EOS % 1.1 % (0.0-3.0); HEMATOCRIT 53.9 % (42.0-52.0); LYMPH # 2.1 10^3/uL (1.5-5.0); LYMPH % 19.8 % (24.0-44.0); MEAN CORPUSCULAR HGB CONC 33.4 g/dl (32.0-36.5); MEAN CORPUSCULAR VOLUME 89.8 fl (80.0-96.0); MONO # 0.5 10^3/uL (0.0-0.8); MONO % 4.9 % (2.0-8.0); NEUTROPHILS # 7.7 10^3/uL (1.5-8.5); NEUTROPHILS % 72.9 % (36.0-66.0); PLATELET COUNT, AUTOMATED 310 10^3/uL (150-450); WHITE BLOOD COUNT 10.5 10^3/uL (4.0-10.0)
[2022-11-15] MEDS ORDERED: ISOVUE-370 76% 100ML VIAL As Ordered ONE (10:16)
[2022-11-15 10:28] LABS: ETHYL ALCOHOL (ETHANOL) < 0.003 % (0.000-0.010); LIPASE 24 U/L (12-53)
[2022-11-15 10:29] LABS: AMPHETAMINES LEVEL URINE NEGATIVE (NEGATIVE); BARBITURATES URINE NEGATIVE (NEGATIVE); BENZODIAZEPINES URINE NEGATIVE (NEGATIVE); COCAINE METABOLITE URINE NEGATIVE (NEGATIVE); METHADONE URINE NEGATIVE (NEGATIVE); OPIATES URINE NEGATIVE (NEGATIVE); PHENCYCLIDINE URINE NEGATIVE (NEGATIVE)
[2022-11-15 10:30] LABS: ACETAMINOPHEN LEVEL < 2.0 UG/ML (10.0-20.0); ALBUMIN 4.7 G/DL (3.2-5.2); ALKALINE PHOSPHATASE 71 U/L (46-116); ALT/SGPT 70 U/L (7.0-40); AMYLASE 64 U/L (30-118); AST/SGOT 28 U/L (<34); BILIRUBIN,DIRECT 0.3 MG/DL (<0.4); BILIRUBIN,TOTAL 0.9 MG/DL (0.3-1.2); BLOOD UREA NITROGEN 13 MG/DL (9-23); CANNABINOIDS URINE POSITIVE (NEGATIVE); CARBON DIOXIDE LEVEL 28 MMOL/L (20-31); CHLORIDE LEVEL 102 MMOL/L (98-107); CREATININE FOR GFR 0.98 MG/DL (0.70-1.30); GLOMERULAR FILTRATION RATE > 60.0 (>60); GLUCOSE, FASTING 103 MG/DL (60-100); SALICYLATE LEVEL < 3.0 MG/DL (<30); SODIUM LEVEL 138 MMOL/L (136-145); TOTAL PROTEIN 8.2 G/DL (5.7-8.2)
[2022-11-15 10:45] LABS: RSV AMPLIFICATION NEGATIVE (NEGATIVE)
[2022-11-15] MEDS ORDERED: CHLO1.4S7 MT (11:19)
[2022-11-15] MEDS ORDERED: AMOX500C PO (11:19)
[2022-11-15] MEDS ORDERED: TRAZ-252 PO (11:19)
[2022-11-15] MEDS ORDERED: BENZ1TAB5 PO (11:19)
[2022-11-15] MEDS ORDERED: DIFI200T PO (11:19)
[2022-11-15] MEDS ORDERED: MIRT1TAB PO (11:19)
[2022-11-15] MEDS ORDERED: LEXA1TAB2 PO (11:19)
[2022-11-15] MEDS ORDERED: PRAZ1CAP PO (11:19)
[2022-11-15] MEDS ORDERED: HOME MED LIST COMPLETE! XX SCH (11:25)
[2022-11-15] MEDS ORDERED: PRAZOSIN 1 MG CAP PO ONE (22:20)
[2022-11-15] MEDS ORDERED: BENZTROPINE MESYLATE 2MG/2ML VIAL IM ONE (22:20)
[2022-11-15] MEDS ORDERED: MIRTAZAPINE 7.5MG PER 1/2 TABLET PO ONE (22:20)
[2022-11-15] MEDS ORDERED: SUCRALFATE 1 GM TAB PO ONE (22:20)
[2022-11-15] MEDS ORDERED: traZODone 50 MG TAB PO ONE (22:20)
[2022-11-15] MEDS ORDERED: GABAPENTIN 300 MG CAP PO ONE (22:20)
[2022-11-15] MEDS ORDERED: BENZTROPINE 1 MG TAB PO ONE (22:30)
[2022-11-16] MEDS ORDERED: CHLORASEPTIC SPRAY MT PRN (12:35)
[2022-11-16] MEDS: PANTOPRAZOLE 40MG TAB (PROTONIX) PO SCH (12:49)
[2022-11-16] MEDS: FAMOTIDINE 20 MG TAB PO SCH (12:50)
[2022-11-16] MEDS: BENZTROPINE 1 MG TAB PO SCH ×2 (12:50→20:23)
[2022-11-16] MEDS: SUCRALFATE 1 GM TAB PO SCH ×3 (12:50→20:23)
[2022-11-16] MEDS: ESCITALOPRAM OXALATE 10 MG TAB (LEXAPRO) PO SCH (12:50)
[2022-11-16] MEDS ORDERED: HALOPERIDOL DECANOATE 100 MG/ML 1ML VIAL IM ONE (16:00)
[2022-11-16] MEDS: GABAPENTIN 300 MG CAP PO SCH ×2 (16:58→20:23)
[2022-11-16] MEDS: PRAZOSIN 1 MG CAP PO SCH (20:23)
[2022-11-16] MEDS: MIRTAZAPINE 7.5MG PER 1/2 TABLET PO SCH (20:23)
[2022-11-16] MEDS: traZODone 50 MG TAB PO PRN (22:09)
[2022-11-17 02:35] VITALS: BP 115/75
[2022-11-17] MEDS: ACETAMINOPHEN TAB 650MG DOSE (2X325MG) PO PRN (06:12)
[2022-11-17] MEDS: SUCRALFATE 1 GM TAB PO SCH ×4 (07:01→21:20)
[2022-11-17] MEDS: FAMOTIDINE 20 MG TAB PO SCH (09:13)
[2022-11-17] MEDS: BENZTROPINE 1 MG TAB PO SCH ×2 (09:13→21:20)
[2022-11-17] MEDS: PANTOPRAZOLE 40MG TAB (PROTONIX) PO SCH (09:13)
[2022-11-17] MEDS: GABAPENTIN 300 MG CAP PO SCH ×3 (09:14→21:20)
[2022-11-17] MEDS: ESCITALOPRAM OXALATE 10 MG TAB (LEXAPRO) PO SCH (09:14)
[2022-11-17] MEDS: NICOTINE 14 MG/24 HR TRANSDERMAL TD SCH (12:19)
[2022-11-17] MEDS: OLANZapine ORAL DISINTEGRATING TAB 5MG PO PRN (15:51)
[2022-11-17 16:24] VITALS: BP_SYST 100; BP_SYST 134; BP_DIAS 63; BP_DIAS 69
[2022-11-17] MEDS: LACTOBACILLUS ACIDOPHILUS CAP (BACID) PO SCH ×2 (17:46→21:20)
[2022-11-17 19:55] LABS: GC DNA AMPLIFICATION NEGATIVE (NEGATIVE)
[2022-11-17] MEDS: PRAZOSIN 1 MG CAP PO SCH (21:20)
[2022-11-17] MEDS: FIDAXOMICIN 200 MG TAB (DIFICID) PO SCH (21:20)
[2022-11-17] MEDS: MIRTAZAPINE 7.5MG PER 1/2 TABLET PO SCH (21:20)
[2022-11-17] MEDS: traZODone 50 MG TAB PO PRN (21:22)
[2022-11-18 06:29] VITALS: BP 117/76
[2022-11-18] MEDS: SUCRALFATE 1 GM TAB PO SCH ×4 (06:43→20:10)
[2022-11-18] MEDS: OLANZapine ORAL DISINTEGRATING TAB 5MG PO PRN (08:06)
[2022-11-18] MEDS: PANTOPRAZOLE 40MG TAB (PROTONIX) PO SCH (08:07)
[2022-11-18] MEDS: NICOTINE 14 MG/24 HR TRANSDERMAL TD SCH (08:07)
[2022-11-18] MEDS: BENZTROPINE 1 MG TAB PO SCH ×2 (08:07→20:10)
[2022-11-18] MEDS: FIDAXOMICIN 200 MG TAB (DIFICID) PO SCH ×2 (08:07→20:10)
[2022-11-18] MEDS: GABAPENTIN 300 MG CAP PO SCH ×3 (08:07→20:10)
[2022-11-18] MEDS: ESCITALOPRAM OXALATE 10 MG TAB (LEXAPRO) PO SCH (08:07)
[2022-11-18] MEDS: FAMOTIDINE 20 MG TAB PO SCH (08:07)
[2022-11-18] MEDS: LACTOBACILLUS ACIDOPHILUS CAP (BACID) PO SCH ×4 (08:07→20:09)
[2022-11-18] MEDS: ACETAMINOPHEN TAB 650MG DOSE (2X325MG) PO PRN (10:23)
[2022-11-18 16:12] VITALS: BP 142/63
[2022-11-18] MEDS: PRAZOSIN 1 MG CAP PO SCH (20:10)
[2022-11-18] MEDS: traZODone 50 MG TAB PO PRN (21:45)
[2022-11-18] MEDS: MIRTAZAPINE 7.5MG PER 1/2 TABLET PO SCH (21:45)
[2022-11-19 06:07] VITALS: BP 131/59
[2022-11-19] MEDS: SUCRALFATE 1 GM TAB PO SCH ×4 (06:34→20:06)
[2022-11-19] MEDS: FAMOTIDINE 20 MG TAB PO SCH (08:34)
[2022-11-19] MEDS: BENZTROPINE 1 MG TAB PO SCH ×2 (08:34→20:06)
[2022-11-19] MEDS: GABAPENTIN 300 MG CAP PO SCH ×3 (08:34→20:06)
[2022-11-19] MEDS: ESCITALOPRAM OXALATE 10 MG TAB (LEXAPRO) PO SCH (08:34)
[2022-11-19] MEDS: PANTOPRAZOLE 40MG TAB (PROTONIX) PO SCH (08:34)
[2022-11-19] MEDS: FIDAXOMICIN 200 MG TAB (DIFICID) PO SCH ×2 (08:34→20:06)
[2022-11-19] MEDS: LACTOBACILLUS ACIDOPHILUS CAP (BACID) PO SCH ×4 (08:35→20:06)
[2022-11-19] MEDS: NICOTINE 14 MG/24 HR TRANSDERMAL TD SCH (09:00)
[2022-11-19] MEDS: OLANZapine ORAL DISINTEGRATING TAB 5MG PO PRN (16:40)
[2022-11-19 17:46] VITALS: BP 133/83
[2022-11-19] MEDS: ACETAMINOPHEN TAB 650MG DOSE (2X325MG) PO PRN (18:35)
[2022-11-19] MEDS: PRAZOSIN 1 MG CAP PO SCH (20:06)
[2022-11-19] MEDS: MIRTAZAPINE 7.5MG PER 1/2 TABLET PO SCH (20:06)
[2022-11-19] MEDS: traZODone 50 MG TAB PO PRN (21:22)
[2022-11-20 06:41] VITALS: BP 130/66
[2022-11-20] MEDS: SUCRALFATE 1 GM TAB PO SCH ×4 (06:49→20:03)
[2022-11-20] MEDS: FIDAXOMICIN 200 MG TAB (DIFICID) PO SCH (08:03)
[2022-11-20] MEDS: ESCITALOPRAM OXALATE 10 MG TAB (LEXAPRO) PO SCH (08:03)
[2022-11-20] MEDS: GABAPENTIN 300 MG CAP PO SCH ×3 (08:03→20:04)
[2022-11-20] MEDS: LACTOBACILLUS ACIDOPHILUS CAP (BACID) PO SCH ×4 (08:03→20:03)
[2022-11-20] MEDS: FAMOTIDINE 20 MG TAB PO SCH (08:03)
[2022-11-20] MEDS: BENZTROPINE 1 MG TAB PO SCH ×2 (08:04→20:04)
[2022-11-20] MEDS: NICOTINE 14 MG/24 HR TRANSDERMAL TD SCH (08:04)
[2022-11-20] MEDS: PANTOPRAZOLE 40MG TAB (PROTONIX) PO SCH (08:04)
[2022-11-20] MEDS: LIDOCAINE 5% (LIDODERM) PATCH TD SCH (09:56)
[2022-11-20] MEDS: OLANZapine ORAL DISINTEGRATING TAB 5MG PO PRN ×2 (12:04→20:05)
[2022-11-20 16:13] VITALS: BP 115/60
[2022-11-20] MEDS: MIRTAZAPINE 7.5MG PER 1/2 TABLET PO SCH (20:03)
[2022-11-20] MEDS: PRAZOSIN 1 MG CAP PO SCH (20:05)
[2022-11-20] MEDS: traZODone 50 MG TAB PO PRN (20:38)
[2022-11-21 06:25] VITALS: BP 149/73
[2022-11-21] MEDS: SUCRALFATE 1 GM TAB PO SCH ×4 (06:41→20:33)
[2022-11-21] MEDS: ESCITALOPRAM OXALATE 10 MG TAB (LEXAPRO) PO SCH (07:27)
[2022-11-21] MEDS: PANTOPRAZOLE 40MG TAB (PROTONIX) PO SCH (07:27)
[2022-11-21] MEDS: FAMOTIDINE 20 MG TAB PO SCH (07:27)
[2022-11-21] MEDS: LACTOBACILLUS ACIDOPHILUS CAP (BACID) PO SCH ×4 (07:28→20:35)
[2022-11-21] MEDS: NICOTINE 14 MG/24 HR TRANSDERMAL TD SCH (07:28)
[2022-11-21] MEDS: GABAPENTIN 300 MG CAP PO SCH ×3 (07:28→20:35)
[2022-11-21] MEDS: BENZTROPINE 1 MG TAB PO SCH ×2 (07:28→20:33)
[2022-11-21] MEDS: LIDOCAINE 5% (LIDODERM) PATCH TD SCH (07:28)
[2022-11-21 16:10] VITALS: BP 138/66
[2022-11-21] MEDS: MIRTAZAPINE 7.5MG PER 1/2 TABLET PO SCH (20:33)
[2022-11-21] MEDS: PRAZOSIN 1 MG CAP PO SCH (20:35)
[2022-11-21] MEDS: OLANZapine ORAL DISINTEGRATING TAB 5MG PO PRN (22:31)
[2022-11-21] MEDS: traZODone 50 MG TAB PO PRN (22:31)
[2022-11-22 06:13] VITALS: BP 129/63
[2022-11-22] MEDS: SUCRALFATE 1 GM TAB PO SCH ×4 (06:40→20:16)
[2022-11-22] MEDS: OLANZapine ORAL DISINTEGRATING TAB 5MG PO PRN ×2 (06:40→21:17)
[2022-11-22] MEDS: NICOTINE 14 MG/24 HR TRANSDERMAL TD SCH (08:56)
[2022-11-22] MEDS: GABAPENTIN 300 MG CAP PO SCH ×3 (08:58→20:16)
[2022-11-22] MEDS: LACTOBACILLUS ACIDOPHILUS CAP (BACID) PO SCH ×4 (08:58→20:16)
[2022-11-22] MEDS: BENZTROPINE 1 MG TAB PO SCH ×2 (08:59→20:16)
[2022-11-22] MEDS: ESCITALOPRAM OXALATE 10 MG TAB (LEXAPRO) PO SCH (08:59)
[2022-11-22] MEDS: FAMOTIDINE 20 MG TAB PO SCH (08:59)
[2022-11-22] MEDS: PANTOPRAZOLE 40MG TAB (PROTONIX) PO SCH (08:59)
[2022-11-22] MEDS: LIDOCAINE 5% (LIDODERM) PATCH TD SCH (08:59)
[2022-11-22 17:10] VITALS: BP 137/68
[2022-11-22 20:16] VITALS: BP 137/68
[2022-11-22] MEDS: PRAZOSIN 1 MG CAP PO SCH (20:16)
[2022-11-22] MEDS: MIRTAZAPINE 7.5MG PER 1/2 TABLET PO SCH (20:16)
[2022-11-22] MEDS: traZODone 50 MG TAB PO PRN (21:16)
[2022-11-23 06:14] VITALS: BP 139/67
[2022-11-23] MEDS: SUCRALFATE 1 GM TAB PO SCH (07:02)
[2022-11-23] MEDS: BENZTROPINE 1 MG TAB PO SCH (08:05)
[2022-11-23] MEDS: ESCITALOPRAM OXALATE 10 MG TAB (LEXAPRO) PO SCH (08:06)
[2022-11-23] MEDS: LACTOBACILLUS ACIDOPHILUS CAP (BACID) PO SCH (08:06)
[2022-11-23] MEDS: GABAPENTIN 300 MG CAP PO SCH (08:06)
[2022-11-23] MEDS: FAMOTIDINE 20 MG TAB PO SCH (08:07)
[2022-11-23] MEDS: PANTOPRAZOLE 40MG TAB (PROTONIX) PO SCH (08:07)
[2022-11-23] MEDS ORDERED: PRAZ1CAP PO (08:18)
[2022-11-23] MEDS ORDERED: LIDO5TD TD (08:18)
[2022-11-23] MEDS ORDERED: LEXA1TAB2 PO (08:18)
[2022-11-23] MEDS ORDERED: BENZ1TAB5 PO (08:18)
[2022-11-23] MEDS ORDERED: GABA-282 PO (08:18)
[2022-11-23] MEDS ORDERED: NICO14PA TD (08:18)
[2022-11-23] MEDS ORDERED: TRAZ-252 PO (08:18)
[2022-11-23] MEDS ORDERED: HALD100I2 IM (08:18)
[2022-11-23] MEDS ORDERED: MIRT1TAB PO (08:18)
[2022-11-23] MEDS ORDERED: OLAN5ZYD PO (08:18)
[2022-11-23] MEDS: NICOTINE 14 MG/24 HR TRANSDERMAL TD SCH (09:00)
[2022-11-23] MEDS: LIDOCAINE 5% (LIDODERM) PATCH TD SCH (10:22)
[2022-11-24] MEDS ORDERED: LEXA1TAB2 PO (01:12)
[2022-11-24] MEDS ORDERED: MIRT1TAB PO (01:12)
[2022-11-24] MEDS ORDERED: LIDO1PAD TOP (01:12)
[2022-11-24] MEDS ORDERED: MELA3TAB30 PO (01:12)
[2022-11-24] MEDS ORDERED: OLAN5ZYD PO (01:12)
[2022-11-24] MEDS ORDERED: GABA-282 PO (01:12)
[2022-11-24] MEDS ORDERED: TRAZ-186 PO (01:12)
[2022-11-24] MEDS ORDERED: BENZ1TAB5 PO (01:12)
[2022-11-24] MEDS ORDERED: PRAZ1CAP PO (01:12)
[2022-11-24] MEDS ORDERED: NICO14DI24 TD (01:12)
[2022-11-24] MEDS ORDERED: HALD100I2 IM (01:12)
== END 2022-11-23 11:38 | disposition home or self-care (01) | DRG 750 ==
LOC: EDBD 09:10 → M ED 09:10 → M ED INP 11-16 12:33 → M PSY 11-16 16:32
PROVIDERS: ADMIT Student in an Organized Health Care Education/Training Program; ATTEND Student in an Organized Health Care Education/Training Program
DX: F25.9 Schizoaffective disorder, unspecified (principal); F41.9 Anxiety disorder, unspecified; F45.1 Undifferentiated somatoform disorder; F12.10 Cannabis abuse, uncomplicated; K21.9 Gastro-esophageal reflux disease without esophagitis; F17.210 Nicotine dependence, cigarettes, uncomplicated; R45.851 Suicidal ideations; F43.10 Post-traumatic stress disorder, unspecified; Z81.8 Family history of other mental and behavioral disorders; Z81.1 Family history of alcohol abuse and dependence; Z59.00 Homelessness unspecified; Z62.810 Personal history of physical and sexual abuse in childhood; Z79.2 Long term (current) use of antibiotics; Z79.899 Other long term (current) drug therapy; Z88.8 Allergy status to other drugs, medicaments and biological substances; Z20.822 Contact with and (suspected) exposure to COVID-19

== ENCOUNTER 2022-11-23 18:27 | Emergency (ER) | payer MEDICAID ==
[~2022-11-23] VITALS: Ht 180.3 cm; Wt 85.0 kg
[~2022-11-23 18:27] MED LIST changes: +CHLO1.4S7 MT; +DIFI200T PO; +LIDO5TD TD; +NICO14PA TD; +OLAN5ZYD PO
[2022-11-23 22:15] LABS: HEMATOCRIT 45.5 % (42.0-52.0); HEMOGLOBIN 15.5 g/dl (13.5-17.5); MEAN CORPUSCULAR HEMOGLOBIN 29.9 pg (27.0-33.0); MEAN CORPUSCULAR HGB CONC 34.1 g/dl (32.0-36.5); MEAN CORPUSCULAR VOLUME 87.8 fl (80.0-96.0); PLATELET COUNT, AUTOMATED 280 10^3/uL (150-450); RED BLOOD COUNT 5.18 10^6/uL (4.30-6.10); WHITE BLOOD COUNT 11.7 10^3/uL (4.0-10.0)
[2022-11-23 22:37] LABS: AMPHETAMINES LEVEL URINE NEGATIVE (NEGATIVE); BARBITURATES URINE NEGATIVE (NEGATIVE); BENZODIAZEPINES URINE NEGATIVE (NEGATIVE); COCAINE METABOLITE URINE NEGATIVE (NEGATIVE); METHADONE URINE NEGATIVE (NEGATIVE); OPIATES URINE NEGATIVE (NEGATIVE); PHENCYCLIDINE URINE NEGATIVE (NEGATIVE)
[2022-11-23 22:39] LABS: CANNABINOIDS URINE POSITIVE (NEGATIVE)
[2022-11-23 22:52] LABS: ETHYL ALCOHOL (ETHANOL) < 0.003 % (0.000-0.010)
[2022-11-23 22:54] LABS: ACETAMINOPHEN LEVEL < 2.0 UG/ML (10.0-20.0); ALBUMIN 4.2 G/DL (3.2-5.2); ALKALINE PHOSPHATASE 72 U/L (46-116); ALT/SGPT 34 U/L (7.0-40); AST/SGOT 23 U/L (<34); BILIRUBIN,DIRECT 0.1 MG/DL (<0.4); BILIRUBIN,TOTAL 0.3 MG/DL (0.3-1.2); BLOOD UREA NITROGEN 23 MG/DL (9-23); CALCIUM LEVEL 9.6 MG/DL (8.5-10.1); CARBON DIOXIDE LEVEL 28 MMOL/L (20-31); CHLORIDE LEVEL 106 MMOL/L (98-107); CREATININE FOR GFR 0.97 MG/DL (0.70-1.30); GLOMERULAR FILTRATION RATE > 60.0 (>60); GLUCOSE, FASTING 94 MG/DL (60-100); POTASSIUM SERUM 4.6 MMOL/L (3.5-5.1); SALICYLATE LEVEL < 3.0 MG/DL (<30); SODIUM LEVEL 141 MMOL/L (136-145)
[2022-11-23 23:21] LABS: THYROID STIMULATING HORMONE 1.078 uIU/ML (0.55-4.78)
[2022-11-24] MEDS ORDERED: NICO14DI24 TD (01:12)
[2022-11-24] MEDS ORDERED: TRAZ-186 PO (01:12)
[2022-11-24] MEDS ORDERED: HALD100I2 IM (01:12)
[2022-11-24] MEDS ORDERED: LEXA1TAB2 PO (01:12)
[2022-11-24] MEDS ORDERED: LIDO1PAD TOP (01:12)
[2022-11-24] MEDS ORDERED: BENZ1TAB5 PO (01:12)
[2022-11-24] MEDS ORDERED: GABA-282 PO (01:12)
[2022-11-24] MEDS ORDERED: PRAZ1CAP PO (01:12)
[2022-11-24] MEDS ORDERED: MIRT1TAB PO (01:12)
[2022-11-24] MEDS ORDERED: MELA3TAB30 PO (01:12)
[2022-11-24] MEDS ORDERED: OLAN5ZYD PO (01:12)
[2022-11-24] MEDS ORDERED: HOME MED LIST COMPLETE! XX SCH (03:10)
[2022-11-24 15:41] VITALS: BP 128/60
== END 2022-11-24 15:51 | disposition home or self-care (01) ==
LOC: M ED 18:27
DX: F43.0 Acute stress reaction (principal); F20.9 Schizophrenia, unspecified; F41.9 Anxiety disorder, unspecified; F17.200 Nicotine dependence, unspecified, uncomplicated; F12.10 Cannabis abuse, uncomplicated; Z79.899 Other long term (current) drug therapy; Z88.8 Allergy status to other drugs, medicaments and biological substances

== ENCOUNTER 2022-12-01 09:19 | Inpatient (IN) | payer MEDICAID, OTHER ==
[~2022-12-01] VITALS: Ht 180.3 cm; Wt 86.0 kg
[~2022-12-01 09:19] MED LIST changes: +LIDO1PAD TOP; +MELA3TAB30 PO; +NICO14DI24 TD; +TRAZ-186 PO
[2022-12-01 10:29] LABS: HEMATOCRIT 51.3 % (42.0-52.0); HEMOGLOBIN 17.3 g/dl (13.5-17.5); MEAN CORPUSCULAR HEMOGLOBIN 29.9 pg (27.0-33.0); MEAN CORPUSCULAR HGB CONC 33.7 g/dl (32.0-36.5); MEAN CORPUSCULAR VOLUME 88.8 fl (80.0-96.0); PLATELET COUNT, AUTOMATED 275 10^3/uL (150-450); RED BLOOD COUNT 5.78 10^6/uL (4.30-6.10); WHITE BLOOD COUNT 12.5 10^3/uL (4.0-10.0)
[2022-12-01 10:55] LABS: ETHYL ALCOHOL (ETHANOL) 0.005 % (0.000-0.010)
[2022-12-01 10:56] LABS: ACETAMINOPHEN LEVEL < 2.0 UG/ML (10.0-20.0)
[2022-12-01 10:57] LABS: ALBUMIN 4.4 G/DL (3.2-5.2); ALKALINE PHOSPHATASE 66 U/L (46-116); ALT/SGPT 25 U/L (7.0-40); AST/SGOT 17 U/L (<34); BILIRUBIN,DIRECT 0.5 MG/DL (<0.4); BILIRUBIN,TOTAL 1.6 MG/DL (0.3-1.2); BLOOD UREA NITROGEN 17 MG/DL (9-23); CALCIUM LEVEL 9.8 MG/DL (8.5-10.1); CARBON DIOXIDE LEVEL 29 MMOL/L (20-31); CHLORIDE LEVEL 105 MMOL/L (98-107); CREATININE FOR GFR 1.07 MG/DL (0.70-1.30); GLOMERULAR FILTRATION RATE > 60.0 (>60); GLUCOSE, FASTING 104 MG/DL (60-100); SALICYLATE LEVEL < 3.0 MG/DL (<30); SODIUM LEVEL 143 MMOL/L (136-145); TOTAL PROTEIN 7.3 G/DL (5.7-8.2)
[2022-12-01 10:59] LABS: THYROID STIMULATING HORMONE 0.473 uIU/ML (0.55-4.78)
[2022-12-01 11:31] LABS: AMPHETAMINES LEVEL URINE NEGATIVE (NEGATIVE); BARBITURATES URINE NEGATIVE (NEGATIVE); BENZODIAZEPINES URINE NEGATIVE (NEGATIVE); CANNABINOIDS URINE POSITIVE (NEGATIVE); COCAINE METABOLITE URINE NEGATIVE (NEGATIVE); METHADONE URINE NEGATIVE (NEGATIVE); OPIATES URINE NEGATIVE (NEGATIVE); PHENCYCLIDINE URINE NEGATIVE (NEGATIVE)
[2022-12-01] MEDS ORDERED: HALOPERIDOL 5MG/ML 1ML VIAL IM STA (13:25)
[2022-12-01] MEDS ORDERED: ONDANSETRON 4MG ORAL DISINTEGRATING TAB PO ONE (15:05)
[2022-12-01] MEDS ORDERED: HOME MED LIST COMPLETE! XX SCH (16:35)
[2022-12-02 15:15] VITALS: BP 138/75
== END 2022-12-02 15:21 | disposition home or self-care (01) | DRG 750 ==
LOC: M ED 09:19 → M ED INP 19:54
PROVIDERS: ADMIT Psychiatry & Neurology Psychiatry; ATTEND Psychiatry & Neurology Psychiatry
DX: F25.9 Schizoaffective disorder, unspecified (principal); F17.200 Nicotine dependence, unspecified, uncomplicated; F12.90 Cannabis use, unspecified, uncomplicated; F41.9 Anxiety disorder, unspecified

== ENCOUNTER 2022-12-04 15:25 | Inpatient (IN) | payer MEDICAID, OTHER ==
[~2022-12-04] VITALS: Ht 180.3 cm; Wt 80.0 kg
[2022-12-04] MEDS ORDERED: NS 1,000 ML IV ONE (15:55)
[2022-12-04] MEDS ORDERED: ONDANSETRON 4MG 2ML VIAL IV ONE (15:55)
[2022-12-04 16:10] LABS: BASO % 0.3 % (0.0-1.0); EOS # 0.1 10^3/uL (0.0-0.5); EOS % 0.5 % (0.0-3.0); HEMATOCRIT 46.4 % (42.0-52.0); HEMOGLOBIN 16.1 g/dl (13.5-17.5); LYMPH # 1.6 10^3/uL (1.5-5.0); LYMPH % 14.7 % (24.0-44.0); MEAN CORPUSCULAR HEMOGLOBIN 30.1 pg (27.0-33.0); MEAN CORPUSCULAR HGB CONC 34.7 g/dl (32.0-36.5); MEAN CORPUSCULAR VOLUME 86.7 fl (80.0-96.0); MONO # 0.5 10^3/uL (0.0-0.8); NEUTROPHILS # 8.5 10^3/uL (1.5-8.5); NEUTROPHILS % 78.9 % (36.0-66.0); PLATELET COUNT, AUTOMATED 271 10^3/uL (150-450); RED BLOOD COUNT 5.35 10^6/uL (4.30-6.10); WHITE BLOOD COUNT 10.8 10^3/uL (4.0-10.0)
[2022-12-04 16:35] LABS: ETHYL ALCOHOL (ETHANOL) < 0.003 % (0.000-0.010); LIPASE 58 U/L (12-53)
[2022-12-04 16:37] LABS: ACETAMINOPHEN LEVEL < 2.0 UG/ML (10.0-20.0); ALBUMIN 4.4 G/DL (3.2-5.2); ALKALINE PHOSPHATASE 71 U/L (46-116); ALT/SGPT 25 U/L (7.0-40); AST/SGOT 15 U/L (<34); BILIRUBIN,DIRECT 0.3 MG/DL (<0.4); BILIRUBIN,TOTAL 0.9 MG/DL (0.3-1.2); BLOOD UREA NITROGEN 13 MG/DL (9-23); CALCIUM LEVEL 9.3 MG/DL (8.5-10.1); CARBON DIOXIDE LEVEL 27 MMOL/L (20-31); CHLORIDE LEVEL 103 MMOL/L (98-107); CREATININE FOR GFR 1.01 MG/DL (0.70-1.30); GLOMERULAR FILTRATION RATE > 60.0 (>60); GLUCOSE, FASTING 147 MG/DL (60-100); POTASSIUM SERUM 3.7 MMOL/L (3.5-5.1); SALICYLATE LEVEL < 3.0 MG/DL (<30); SODIUM LEVEL 141 MMOL/L (136-145); TOTAL PROTEIN 7.2 G/DL (5.7-8.2)
[2022-12-04 16:39] LABS: THYROID STIMULATING HORMONE 0.535 uIU/ML (0.55-4.78)
[2022-12-04] MEDS ORDERED: LORazepam 2 MG/ML 1ML VIAL IV STA (17:03)
[2022-12-04] MEDS ORDERED: ISOVUE-370 76% 100ML VIAL As Ordered ONE (17:07)
[2022-12-04 18:59] LABS: AMPHETAMINES LEVEL URINE NEGATIVE (NEGATIVE); BARBITURATES URINE NEGATIVE (NEGATIVE); BENZODIAZEPINES URINE NEGATIVE (NEGATIVE); CANNABINOIDS URINE POSITIVE (NEGATIVE); COCAINE METABOLITE URINE NEGATIVE (NEGATIVE); METHADONE URINE NEGATIVE (NEGATIVE); OPIATES URINE NEGATIVE (NEGATIVE); PHENCYCLIDINE URINE NEGATIVE (NEGATIVE)
[2022-12-04] MEDS ORDERED: med rec comment (22:12)
[2022-12-04] MEDS ORDERED: HOME MED LIST COMPLETE! XX SCH (22:15)
[2022-12-05] MEDS ORDERED: ONDANSETRON 4MG ORAL DISINTEGRATING TAB PO ONE (05:55)
[2022-12-05] MEDS ORDERED: SUCRALFATE 1 GM TAB PO ONE (07:30)
[2022-12-05] MEDS ORDERED: OLANZapine 5 MG TAB PO PRN (07:50)
[2022-12-05] MEDS ORDERED: traZODone 50 MG TAB PO PRN (07:50)
[2022-12-05] MEDS ORDERED: BENZTROPINE 1 MG TAB PO ONE (09:00)
[2022-12-05] MEDS ORDERED: ESCITALOPRAM OXALATE 10 MG TAB (LEXAPRO) PO ONE (09:00)
[2022-12-05] MEDS ORDERED: PANTOPRAZOLE 40MG TAB (PROTONIX) PO ONE (09:00)
[2022-12-05] MEDS ORDERED: GABAPENTIN 300 MG CAP PO ONE (09:00)
[2022-12-05] MEDS ORDERED: LIDOCAINE 5% (LIDODERM) PATCH TD ONE (09:00)
[2022-12-05] MEDS ORDERED: FAMOTIDINE 20 MG TAB PO ONE (09:00)
[2022-12-05] MEDS ORDERED: NICOTINE 14 MG/24 HR TRANSDERMAL TD ONE (09:00)
[2022-12-05] MEDS: SUCRALFATE 1 GM TAB PO SCH ×3 (12:08→21:05)
[2022-12-05] MEDS: GABAPENTIN 300 MG CAP PO SCH ×2 (16:55→21:05)
[2022-12-05] MEDS: BENZTROPINE 1 MG TAB PO SCH (21:05)
[2022-12-05] MEDS: MIRTAZAPINE 7.5MG PER 1/2 TABLET PO SCH (21:05)
[2022-12-05] MEDS: PRAZOSIN 1 MG CAP PO SCH (21:05)
[2022-12-06] MEDS ORDERED: NICOTINE 14 MG/24 HR TRANSDERMAL TD SCH (09:00)
[2022-12-06] MEDS ORDERED: ESCITALOPRAM OXALATE 10 MG TAB (LEXAPRO) PO SCH (09:00)
[2022-12-06] MEDS ORDERED: PANTOPRAZOLE 40MG TAB (PROTONIX) PO SCH (09:00)
[2022-12-06] MEDS ORDERED: FAMOTIDINE 20 MG TAB PO SCH (09:00)
[2022-12-06] MEDS ORDERED: LIDOCAINE 5% (LIDODERM) PATCH TD SCH (09:00)
[2022-12-06] MEDS: BENZTROPINE 1 MG TAB PO SCH ×2 (09:14→21:04)
[2022-12-06] MEDS: GABAPENTIN 300 MG CAP PO SCH ×3 (09:15→21:04)
[2022-12-06] MEDS: SUCRALFATE 1 GM TAB PO SCH ×4 (09:15→21:04)
[2022-12-06] MEDS: MIRTAZAPINE 7.5MG PER 1/2 TABLET PO SCH (21:04)
[2022-12-06] MEDS: PRAZOSIN 1 MG CAP PO SCH (21:05)
[2022-12-06] MEDS ORDERED: MOM 30ML SUSPENSION UDC PO PRN (22:35)
[2022-12-07 01:15] VITALS: BP 131/76
[2022-12-07 06:25] VITALS: BP 118/67
[2022-12-07] MEDS: LIDOCAINE 5% (LIDODERM) PATCH TOP SCH (09:00)
[2022-12-07] MEDS: NICOTINE 21MG/24HR 1 EA TRANSDERMAL TD SCH (09:20)
[2022-12-07] MEDS ORDERED: traZODone 50 MG TAB PO PRN (09:35)
[2022-12-07] MEDS: PANTOPRAZOLE 40MG TAB (PROTONIX) PO SCH (09:45)
[2022-12-07] MEDS: BENZTROPINE 1 MG TAB PO SCH ×2 (09:46→20:17)
[2022-12-07] MEDS: ESCITALOPRAM OXALATE 10 MG TAB (LEXAPRO) PO SCH (09:46)
[2022-12-07] MEDS: FAMOTIDINE 20 MG TAB PO SCH (09:46)
[2022-12-07] MEDS: GABAPENTIN 300 MG CAP PO SCH ×3 (09:46→20:18)
[2022-12-07] MEDS ORDERED: SODIUM CHLORIDE NASAL 0.65% SPRAY BTL (OCEAN) PRN (10:35)
[2022-12-07] MEDS: SUCRALFATE 1 GM TAB PO SCH ×3 (12:41→20:18)
[2022-12-07 18:45] VITALS: BP 140/79
[2022-12-07] MEDS: PRAZOSIN 1 MG CAP PO SCH (20:18)
[2022-12-07] MEDS: MIRTAZAPINE 7.5MG PER 1/2 TABLET PO SCH (20:18)
[2022-12-07] MEDS: traZODone 50 MG TAB PO PRN (21:57)
[2022-12-08] MEDS: SUCRALFATE 1 GM TAB PO SCH ×4 (06:32→21:21)
[2022-12-08 06:37] VITALS: BP 129/66
[2022-12-08] MEDS: PANTOPRAZOLE 40MG TAB (PROTONIX) PO SCH (08:06)
[2022-12-08] MEDS: GABAPENTIN 300 MG CAP PO SCH ×3 (08:06→20:25)
[2022-12-08] MEDS: ESCITALOPRAM OXALATE 10 MG TAB (LEXAPRO) PO SCH (08:06)
[2022-12-08] MEDS: NICOTINE 21MG/24HR 1 EA TRANSDERMAL TD SCH (08:06)
[2022-12-08] MEDS: FAMOTIDINE 20 MG TAB PO SCH (08:07)
[2022-12-08] MEDS: LIDOCAINE 5% (LIDODERM) PATCH TOP SCH (08:07)
[2022-12-08] MEDS: BENZTROPINE 1 MG TAB PO SCH ×2 (08:07→20:23)
[2022-12-08] MEDS ORDERED: NICOTINE 14 MG/24 HR TRANSDERMAL TD SCH (09:00)
[2022-12-08 16:13] VITALS: BP 147/77
[2022-12-08] MEDS: ACETAMINOPHEN TAB 650MG DOSE (2X325MG) PO PRN (16:18)
[2022-12-08] MEDS: PRAZOSIN 1 MG CAP PO SCH (20:23)
[2022-12-08] MEDS: MIRTAZAPINE 7.5MG PER 1/2 TABLET PO SCH (20:24)
[2022-12-08] MEDS: traZODone 50 MG TAB PO PRN (22:22)
[2022-12-09 06:15] VITALS: BP 155/69
[2022-12-09] MEDS: SUCRALFATE 1 GM TAB PO SCH ×4 (07:42→20:05)
[2022-12-09] MEDS: GABAPENTIN 300 MG CAP PO SCH ×3 (08:32→20:05)
[2022-12-09] MEDS: FAMOTIDINE 20 MG TAB PO SCH (08:32)
[2022-12-09] MEDS: ESCITALOPRAM OXALATE 10 MG TAB (LEXAPRO) PO SCH (08:32)
[2022-12-09] MEDS: BENZTROPINE 1 MG TAB PO SCH ×2 (08:32→20:05)
[2022-12-09] MEDS: LIDOCAINE 5% (LIDODERM) PATCH TOP SCH (08:33)
[2022-12-09] MEDS: PANTOPRAZOLE 40MG TAB (PROTONIX) PO SCH (08:33)
[2022-12-09] MEDS: NICOTINE 21MG/24HR 1 EA TRANSDERMAL TD SCH (08:35)
[2022-12-09 16:08] VITALS: BP 136/73
[2022-12-09] MEDS: MIRTAZAPINE 7.5MG PER 1/2 TABLET PO SCH (20:05)
[2022-12-09] MEDS: PRAZOSIN 1 MG CAP PO SCH (20:06)
[2022-12-09] MEDS: traZODone 50 MG TAB PO PRN (21:53)
[2022-12-10] MEDS: SUCRALFATE 1 GM TAB PO SCH ×4 (06:30→20:14)
[2022-12-10 06:37] VITALS: BP 120/55
[2022-12-10] MEDS: LIDOCAINE 5% (LIDODERM) PATCH TOP SCH (08:41)
[2022-12-10] MEDS: FAMOTIDINE 20 MG TAB PO SCH (08:43)
[2022-12-10] MEDS: ESCITALOPRAM OXALATE 10 MG TAB (LEXAPRO) PO SCH (08:43)
[2022-12-10] MEDS: PANTOPRAZOLE 40MG TAB (PROTONIX) PO SCH (08:43)
[2022-12-10] MEDS: BENZTROPINE 1 MG TAB PO SCH ×2 (08:43→20:15)
[2022-12-10] MEDS: GABAPENTIN 300 MG CAP PO SCH ×3 (08:43→20:15)
[2022-12-10] MEDS: NICOTINE 21MG/24HR 1 EA TRANSDERMAL TD SCH (08:44)
[2022-12-10] MEDS ORDERED: SALIVA SUBSTITUTE(MOUTHKOTE) BTL MT PRN (10:05)
[2022-12-10] MEDS: ACETAMINOPHEN TAB 650MG DOSE (2X325MG) PO PRN (15:04)
[2022-12-10 17:29] VITALS: BP 129/72
[2022-12-10] MEDS: ARIPiprazole 10 MG TAB PO SCH (20:15)
[2022-12-10] MEDS: PRAZOSIN 1 MG CAP PO SCH (20:15)
[2022-12-10] MEDS: MIRTAZAPINE 7.5MG PER 1/2 TABLET PO SCH (20:15)
[2022-12-10] MEDS: traZODone 50 MG TAB PO PRN (22:35)
[2022-12-11 06:37] VITALS: BP 98/42
[2022-12-11] MEDS: SUCRALFATE 1 GM TAB PO SCH ×4 (06:37→20:03)
[2022-12-11] MEDS: GABAPENTIN 300 MG CAP PO SCH ×3 (08:19→20:03)
[2022-12-11] MEDS: BENZTROPINE 1 MG TAB PO SCH ×2 (08:20→20:03)
[2022-12-11] MEDS: ESCITALOPRAM OXALATE 10 MG TAB (LEXAPRO) PO SCH (08:20)
[2022-12-11] MEDS: PANTOPRAZOLE 40MG TAB (PROTONIX) PO SCH (08:20)
[2022-12-11] MEDS: FAMOTIDINE 20 MG TAB PO SCH (08:20)
[2022-12-11] MEDS: NICOTINE 21MG/24HR 1 EA TRANSDERMAL TD SCH (08:23)
[2022-12-11] MEDS: LIDOCAINE 5% (LIDODERM) PATCH TOP SCH (08:23)
[2022-12-11] MEDS: ACETAMINOPHEN TAB 650MG DOSE (2X325MG) PO PRN (10:01)
[2022-12-11 17:42] VITALS: BP 143/79
[2022-12-11] MEDS: ARIPiprazole 10 MG TAB PO SCH (20:03)
[2022-12-11] MEDS: PRAZOSIN 1 MG CAP PO SCH (20:03)
[2022-12-11] MEDS: MIRTAZAPINE 7.5MG PER 1/2 TABLET PO SCH (20:03)
[2022-12-11] MEDS: traZODone 50 MG TAB PO PRN (21:39)
[2022-12-12 06:21] VITALS: BP 105/53
[2022-12-12] MEDS: SUCRALFATE 1 GM TAB PO SCH ×4 (06:49→20:27)
[2022-12-12] MEDS: NICOTINE 21MG/24HR 1 EA TRANSDERMAL TD SCH (08:03)
[2022-12-12] MEDS: LIDOCAINE 5% (LIDODERM) PATCH TOP SCH (08:03)
[2022-12-12] MEDS: BENZTROPINE 1 MG TAB PO SCH ×2 (08:05→20:27)
[2022-12-12] MEDS: GABAPENTIN 300 MG CAP PO SCH ×3 (08:05→20:27)
[2022-12-12] MEDS: PANTOPRAZOLE 40MG TAB (PROTONIX) PO SCH (08:05)
[2022-12-12] MEDS: FAMOTIDINE 20 MG TAB PO SCH (08:05)
[2022-12-12] MEDS: ESCITALOPRAM OXALATE 10 MG TAB (LEXAPRO) PO SCH (08:06)
[2022-12-12 18:00] VITALS: BP 145/72
[2022-12-12] MEDS: ARIPiprazole 10 MG TAB PO SCH (20:27)
[2022-12-12] MEDS: MIRTAZAPINE 7.5MG PER 1/2 TABLET PO SCH (20:27)
[2022-12-12] MEDS: PRAZOSIN 1 MG CAP PO SCH (20:27)
[2022-12-12] MEDS: ACETAMINOPHEN TAB 650MG DOSE (2X325MG) PO PRN (20:28)
[2022-12-12] MEDS: traZODone 50 MG TAB PO PRN (22:25)
[2022-12-13 06:09] VITALS: BP 116/57
[2022-12-13] MEDS: SUCRALFATE 1 GM TAB PO SCH ×4 (06:34→20:06)
[2022-12-13] MEDS: PANTOPRAZOLE 40MG TAB (PROTONIX) PO SCH (08:18)
[2022-12-13] MEDS: GABAPENTIN 300 MG CAP PO SCH ×3 (08:18→20:07)
[2022-12-13] MEDS: BENZTROPINE 1 MG TAB PO SCH ×2 (08:18→20:06)
[2022-12-13] MEDS: FAMOTIDINE 20 MG TAB PO SCH (08:18)
[2022-12-13] MEDS: LIDOCAINE 5% (LIDODERM) PATCH TOP SCH (08:19)
[2022-12-13] MEDS: ESCITALOPRAM OXALATE 10 MG TAB (LEXAPRO) PO SCH (08:19)
[2022-12-13] MEDS: NICOTINE 21MG/24HR 1 EA TRANSDERMAL TD SCH ×2 (08:19→13:48)
[2022-12-13 17:49] VITALS: BP 122/61
[2022-12-13] MEDS: ACETAMINOPHEN TAB 650MG DOSE (2X325MG) PO PRN (18:38)
[2022-12-13] MEDS: PRAZOSIN 1 MG CAP PO SCH (20:06)
[2022-12-13] MEDS: ARIPiprazole 10 MG TAB PO SCH (20:06)
[2022-12-13] MEDS: MIRTAZAPINE 7.5MG PER 1/2 TABLET PO SCH (20:07)
[2022-12-13] MEDS: traZODone 50 MG TAB PO PRN (22:17)
[2022-12-14 07:02] VITALS: BP 118/56
[2022-12-14] MEDS: SUCRALFATE 1 GM TAB PO SCH ×4 (07:29→20:31)
[2022-12-14] MEDS: PANTOPRAZOLE 40MG TAB (PROTONIX) PO SCH (08:13)
[2022-12-14] MEDS: BENZTROPINE 1 MG TAB PO SCH ×2 (08:13→20:31)
[2022-12-14] MEDS: GABAPENTIN 300 MG CAP PO SCH ×3 (08:13→20:31)
[2022-12-14] MEDS: FAMOTIDINE 20 MG TAB PO SCH (08:13)
[2022-12-14] MEDS: ESCITALOPRAM OXALATE 10 MG TAB (LEXAPRO) PO SCH (08:14)
[2022-12-14] MEDS: NICOTINE 21MG/24HR 1 EA TRANSDERMAL TD SCH (08:17)
[2022-12-14] MEDS: LIDOCAINE 5% (LIDODERM) PATCH TOP SCH (08:18)
[2022-12-14 16:20] VITALS: BP 124/66
[2022-12-14 16:24] VITALS: BP 137/60
[2022-12-14] MEDS: ACETAMINOPHEN TAB 650MG DOSE (2X325MG) PO PRN (18:41)
[2022-12-14] MEDS: ARIPiprazole 10 MG TAB PO SCH (20:31)
[2022-12-14] MEDS: MIRTAZAPINE 7.5MG PER 1/2 TABLET PO SCH (20:31)
[2022-12-14] MEDS: PRAZOSIN 1 MG CAP PO SCH (20:31)
[2022-12-14] MEDS: traZODone 50 MG TAB PO PRN (22:13)
[2022-12-15 07:00] VITALS: BP 151/67
[2022-12-15] MEDS: SUCRALFATE 1 GM TAB PO SCH ×4 (07:02→20:13)
[2022-12-15] MEDS: BENZTROPINE 1 MG TAB PO SCH ×2 (08:14→20:14)
[2022-12-15] MEDS: ESCITALOPRAM OXALATE 10 MG TAB (LEXAPRO) PO SCH (08:14)
[2022-12-15] MEDS: PANTOPRAZOLE 40MG TAB (PROTONIX) PO SCH (08:14)
[2022-12-15] MEDS: ACETAMINOPHEN TAB 650MG DOSE (2X325MG) PO PRN (08:14)
[2022-12-15] MEDS: FAMOTIDINE 20 MG TAB PO SCH (08:14)
[2022-12-15] MEDS: GABAPENTIN 300 MG CAP PO SCH ×3 (08:14→20:14)
[2022-12-15] MEDS: NICOTINE 21MG/24HR 1 EA TRANSDERMAL TD SCH (08:15)
[2022-12-15] MEDS: LIDOCAINE 5% (LIDODERM) PATCH TOP SCH (08:15)
[2022-12-15 16:54] VITALS: BP 121/67
[2022-12-15] MEDS: PRAZOSIN 1 MG CAP PO SCH (20:13)
[2022-12-15] MEDS: ARIPiprazole 10 MG TAB PO SCH (20:14)
[2022-12-15] MEDS: MIRTAZAPINE 7.5MG PER 1/2 TABLET PO SCH (20:14)
[2022-12-15] MEDS: OLANZapine ORAL DISINTEGRATING TAB 5MG PO PRN (20:14)
[2022-12-15] MEDS: traZODone 50 MG TAB PO PRN (20:14)
[2022-12-16 06:45] VITALS: BP_SYST 138; BP_SYST 155; BP_DIAS 55; BP_DIAS 80
[2022-12-16] MEDS: PANTOPRAZOLE 40MG TAB (PROTONIX) PO SCH (07:33)
[2022-12-16] MEDS: BENZTROPINE 1 MG TAB PO SCH ×2 (07:33→20:18)
[2022-12-16] MEDS: NICOTINE 21MG/24HR 1 EA TRANSDERMAL TD SCH (07:33)
[2022-12-16] MEDS: SUCRALFATE 1 GM TAB PO SCH ×4 (07:33→20:18)
[2022-12-16] MEDS: ESCITALOPRAM OXALATE 10 MG TAB (LEXAPRO) PO SCH (07:33)
[2022-12-16] MEDS: FAMOTIDINE 20 MG TAB PO SCH (07:33)
[2022-12-16] MEDS: LIDOCAINE 5% (LIDODERM) PATCH TOP SCH (07:33)
[2022-12-16] MEDS: GABAPENTIN 300 MG CAP PO SCH ×3 (07:33→20:18)
[2022-12-16 16:34] VITALS: BP 132/67
[2022-12-16] MEDS: MIRTAZAPINE 7.5MG PER 1/2 TABLET PO SCH (20:18)
[2022-12-16] MEDS: ARIPiprazole 10 MG TAB PO SCH (20:18)
[2022-12-16] MEDS: PRAZOSIN 1 MG CAP PO SCH (20:18)
[2022-12-16] MEDS: traZODone 50 MG TAB PO PRN (21:33)
[2022-12-17] MEDS: SUCRALFATE 1 GM TAB PO SCH ×4 (06:34→20:22)
[2022-12-17] MEDS: FAMOTIDINE 20 MG TAB PO SCH (08:11)
[2022-12-17] MEDS: PANTOPRAZOLE 40MG TAB (PROTONIX) PO SCH (08:11)
[2022-12-17] MEDS: CitaloPRAM (CeleXA) 20 MG TAB PO SCH (08:11)
[2022-12-17] MEDS: BENZTROPINE 1 MG TAB PO SCH ×2 (08:11→20:21)
[2022-12-17] MEDS: GABAPENTIN 300 MG CAP PO SCH ×3 (08:11→20:22)
[2022-12-17] MEDS: NICOTINE 21MG/24HR 1 EA TRANSDERMAL TD SCH (08:12)
[2022-12-17] MEDS: LIDOCAINE 5% (LIDODERM) PATCH TOP SCH (08:13)
[2022-12-17 18:38] VITALS: BP 134/82
[2022-12-17] MEDS: ACETAMINOPHEN TAB 650MG DOSE (2X325MG) PO PRN (19:48)
[2022-12-17] MEDS: MIRTAZAPINE 7.5MG PER 1/2 TABLET PO SCH (20:21)
[2022-12-17] MEDS: ARIPiprazole 10 MG TAB PO SCH (20:21)
[2022-12-17] MEDS: PRAZOSIN 1 MG CAP PO SCH (20:22)
[2022-12-17] MEDS: traZODone 50 MG TAB PO PRN (22:31)
[2022-12-18] MEDS: SUCRALFATE 1 GM TAB PO SCH ×4 (06:33→20:05)
[2022-12-18 06:41] VITALS: BP 115/65
[2022-12-18] MEDS: NICOTINE 21MG/24HR 1 EA TRANSDERMAL TD SCH (07:55)
[2022-12-18] MEDS: LIDOCAINE 5% (LIDODERM) PATCH TOP SCH (07:55)
[2022-12-18] MEDS: GABAPENTIN 300 MG CAP PO SCH ×3 (07:57→20:05)
[2022-12-18] MEDS: FAMOTIDINE 20 MG TAB PO SCH (07:57)
[2022-12-18] MEDS: PANTOPRAZOLE 40MG TAB (PROTONIX) PO SCH (07:57)
[2022-12-18] MEDS: BENZTROPINE 1 MG TAB PO SCH ×2 (07:57→20:05)
[2022-12-18] MEDS: CitaloPRAM (CeleXA) 20 MG TAB PO SCH (07:58)
[2022-12-18] MEDS: OLANZapine ORAL DISINTEGRATING TAB 5MG PO PRN (11:17)
[2022-12-18 16:14] VITALS: BP 117/58
[2022-12-18] MEDS: ARIPiprazole 10 MG TAB PO SCH (20:05)
[2022-12-18] MEDS: MIRTAZAPINE 7.5MG PER 1/2 TABLET PO SCH (20:05)
[2022-12-18] MEDS: PRAZOSIN 1 MG CAP PO SCH (20:06)
[2022-12-18] MEDS: traZODone 50 MG TAB PO PRN (22:23)
[2022-12-19 06:04] VITALS: BP 112/55
[2022-12-19] MEDS: SUCRALFATE 1 GM TAB PO SCH ×4 (07:37→20:02)
[2022-12-19] MEDS: PANTOPRAZOLE 40MG TAB (PROTONIX) PO SCH (08:17)
[2022-12-19] MEDS: BENZTROPINE 1 MG TAB PO SCH ×2 (08:18→20:02)
[2022-12-19] MEDS: CitaloPRAM (CeleXA) 20 MG TAB PO SCH (08:18)
[2022-12-19] MEDS: FAMOTIDINE 20 MG TAB PO SCH (08:18)
[2022-12-19] MEDS: GABAPENTIN 300 MG CAP PO SCH ×3 (08:18→20:02)
[2022-12-19] MEDS: NICOTINE 21MG/24HR 1 EA TRANSDERMAL TD SCH (08:30)
[2022-12-19] MEDS: LIDOCAINE 5% (LIDODERM) PATCH TOP SCH (08:30)
[2022-12-19 16:43] VITALS: BP 123/70
[2022-12-19] MEDS: ARIPiprazole 10 MG TAB PO SCH (20:02)
[2022-12-19] MEDS: MIRTAZAPINE 7.5MG PER 1/2 TABLET PO SCH (20:02)
[2022-12-19] MEDS: PRAZOSIN 1 MG CAP PO SCH (20:03)
[2022-12-19] MEDS: traZODone 50 MG TAB PO PRN (23:18)
[2022-12-20] MEDS: OLANZapine ORAL DISINTEGRATING TAB 5MG PO PRN ×2 (03:32→21:53)
[2022-12-20 06:30] VITALS: BP 117/64
[2022-12-20] MEDS: SUCRALFATE 1 GM TAB PO SCH ×4 (06:31→20:56)
[2022-12-20] MEDS: CitaloPRAM (CeleXA) 20 MG TAB PO SCH (08:38)
[2022-12-20] MEDS: PANTOPRAZOLE 40MG TAB (PROTONIX) PO SCH (08:38)
[2022-12-20] MEDS: BENZTROPINE 1 MG TAB PO SCH ×2 (08:38→20:56)
[2022-12-20] MEDS: FAMOTIDINE 20 MG TAB PO SCH (08:39)
[2022-12-20] MEDS: GABAPENTIN 300 MG CAP PO SCH ×3 (08:39→20:56)
[2022-12-20] MEDS: NICOTINE 21MG/24HR 1 EA TRANSDERMAL TD SCH (08:40)
[2022-12-20] MEDS: LIDOCAINE 5% (LIDODERM) PATCH TOP SCH (08:40)
[2022-12-20 17:49] VITALS: BP 124/68
[2022-12-20] MEDS: ARIPiprazole 10 MG TAB PO SCH (20:55)
[2022-12-20] MEDS: PRAZOSIN 1 MG CAP PO SCH (20:56)
[2022-12-20] MEDS: MIRTAZAPINE 7.5MG PER 1/2 TABLET PO SCH (20:56)
[2022-12-20] MEDS: traZODone 50 MG TAB PO PRN (21:53)
[2022-12-21] MEDS: SUCRALFATE 1 GM TAB PO SCH ×4 (06:49→20:16)
[2022-12-21 06:54] VITALS: BP 124/60
[2022-12-21] MEDS: PANTOPRAZOLE 40MG TAB (PROTONIX) PO SCH (08:43)
[2022-12-21] MEDS: BENZTROPINE 1 MG TAB PO SCH ×2 (08:43→20:16)
[2022-12-21] MEDS: FAMOTIDINE 20 MG TAB PO SCH (08:43)
[2022-12-21] MEDS: CitaloPRAM (CeleXA) 20 MG TAB PO SCH (08:43)
[2022-12-21] MEDS: GABAPENTIN 300 MG CAP PO SCH ×3 (08:43→20:16)
[2022-12-21] MEDS: NICOTINE 21MG/24HR 1 EA TRANSDERMAL TD SCH (08:44)
[2022-12-21] MEDS: LIDOCAINE 5% (LIDODERM) PATCH TOP SCH (08:45)
[2022-12-21 18:00] VITALS: BP 144/81
[2022-12-21] MEDS: MIRTAZAPINE 7.5MG PER 1/2 TABLET PO SCH (20:16)
[2022-12-21] MEDS: ARIPiprazole 10 MG TAB PO SCH (20:16)
[2022-12-21] MEDS: PRAZOSIN 1 MG CAP PO SCH (20:16)
[2022-12-21] MEDS: traZODone 50 MG TAB PO PRN (21:11)
[2022-12-21] MEDS: OLANZapine ORAL DISINTEGRATING TAB 5MG PO PRN (22:12)
[2022-12-22] MEDS: MAALOX 30 ML SUSP *UDC PO PRN ×2 (01:16→07:06)
[2022-12-22 06:31] VITALS: BP 135/72
[2022-12-22] MEDS: SUCRALFATE 1 GM TAB PO SCH ×4 (06:58→21:18)
[2022-12-22] MEDS: LIDOCAINE 5% (LIDODERM) PATCH TOP SCH (09:00)
[2022-12-22] MEDS: NICOTINE 21MG/24HR 1 EA TRANSDERMAL TD SCH (09:00)
[2022-12-22] MEDS: PANTOPRAZOLE 40MG TAB (PROTONIX) PO SCH (09:29)
[2022-12-22] MEDS: GABAPENTIN 300 MG CAP PO SCH ×3 (09:30→21:19)
[2022-12-22] MEDS: CitaloPRAM (CeleXA) 20 MG TAB PO SCH (09:30)
[2022-12-22] MEDS: BENZTROPINE 1 MG TAB PO SCH ×2 (09:30→21:18)
[2022-12-22] MEDS: FAMOTIDINE 20 MG TAB PO SCH (09:30)
[2022-12-22] MEDS: ONDANSETRON 4MG TAB PO PRN ×2 (10:18→21:19)
[2022-12-22] MEDS: ACETAMINOPHEN TAB 650MG DOSE (2X325MG) PO PRN (15:39)
[2022-12-22 15:41] VITALS: BP 132/76
[2022-12-22] MEDS: PRAZOSIN 1 MG CAP PO SCH (21:18)
[2022-12-22] MEDS: ARIPiprazole 10 MG TAB PO SCH (21:18)
[2022-12-22] MEDS: MIRTAZAPINE 7.5MG PER 1/2 TABLET PO SCH (21:18)
[2022-12-22] MEDS: traZODone 50 MG TAB PO PRN (21:19)
[2022-12-23 06:45] VITALS: BP 126/65
[2022-12-23] MEDS: SUCRALFATE 1 GM TAB PO SCH ×4 (06:53→20:22)
[2022-12-23] MEDS: CitaloPRAM (CeleXA) 20 MG TAB PO SCH (08:28)
[2022-12-23] MEDS: BENZTROPINE 1 MG TAB PO SCH ×2 (08:28→20:22)
[2022-12-23] MEDS: GABAPENTIN 300 MG CAP PO SCH ×3 (08:28→20:22)
[2022-12-23] MEDS: PANTOPRAZOLE 40MG TAB (PROTONIX) PO SCH (08:28)
[2022-12-23] MEDS: FAMOTIDINE 20 MG TAB PO SCH (08:28)
[2022-12-23] MEDS: NICOTINE 21MG/24HR 1 EA TRANSDERMAL TD SCH (08:31)
[2022-12-23] MEDS: LIDOCAINE 5% (LIDODERM) PATCH TOP SCH (08:31)
[2022-12-23] MEDS: ONDANSETRON 4MG TAB PO PRN (09:36)
[2022-12-23 18:15] VITALS: BP 130/70
[2022-12-23] MEDS: ACETAMINOPHEN TAB 650MG DOSE (2X325MG) PO PRN (18:51)
[2022-12-23] MEDS: ARIPiprazole 10 MG TAB PO SCH (20:21)
[2022-12-23 20:22] VITALS: BP 130/70
[2022-12-23] MEDS: PRAZOSIN 1 MG CAP PO SCH (20:22)
[2022-12-23] MEDS: MIRTAZAPINE 7.5MG PER 1/2 TABLET PO SCH (20:22)
[2022-12-23] MEDS: traZODone 50 MG TAB PO PRN (21:37)
[2022-12-23] MEDS: MAALOX 30 ML SUSP *UDC PO PRN (22:01)
[2022-12-24] MEDS: ONDANSETRON 4MG TAB PO PRN ×3 (04:09→12:45)
[2022-12-24 06:44] VITALS: BP 142/72
[2022-12-24] MEDS: SUCRALFATE 1 GM TAB PO SCH ×2 (06:55→12:10)
[2022-12-24] MEDS: PANTOPRAZOLE 40MG TAB (PROTONIX) PO SCH (08:34)
[2022-12-24] MEDS: CitaloPRAM (CeleXA) 20 MG TAB PO SCH (08:34)
[2022-12-24] MEDS: FAMOTIDINE 20 MG TAB PO SCH (08:34)
[2022-12-24] MEDS: GABAPENTIN 300 MG CAP PO SCH (08:34)
[2022-12-24] MEDS: BENZTROPINE 1 MG TAB PO SCH (08:34)
[2022-12-24] MEDS: LIDOCAINE 5% (LIDODERM) PATCH TOP SCH (08:36)
[2022-12-24] MEDS: NICOTINE 21MG/24HR 1 EA TRANSDERMAL TD SCH (08:36)
[2022-12-24] MEDS ORDERED: FAMO20TA PO (09:25)
[2022-12-24] MEDS ORDERED: MOUKOT60 MT (09:25)
[2022-12-24] MEDS ORDERED: PANT40TA29 PO (09:25)
[2022-12-24] MEDS ORDERED: GABA-282 PO (09:25)
[2022-12-24] MEDS ORDERED: ARIP1TAB43 PO (09:25)
[2022-12-24] MEDS ORDERED: SUCR1TA PO (09:25)
[2022-12-24] MEDS ORDERED: MINI1CAP PO (09:25)
[2022-12-24] MEDS ORDERED: OLAN5ZYD PO (09:25)
[2022-12-24] MEDS ORDERED: NICO21PAT TD (09:25)
[2022-12-24] MEDS ORDERED: CELE40TA PO (09:25)
[2022-12-24] MEDS ORDERED: BENZ1TAB5 PO (09:25)
[2022-12-24] MEDS ORDERED: TRAZ-252 PO (09:25)
[2022-12-24] MEDS ORDERED: MIRT-10 PO (09:25)
[2022-12-24] MEDS ORDERED: ONDA4TAB6 PO (09:27)
[2022-12-25] MEDS ORDERED: ARIP1TAB43 PO (09:58)
== END 2022-12-24 14:23 | disposition home or self-care (01) | DRG 750 ==
LOC: M ED 15:25 → M ED INP 12-06 20:54 → M PSY 12-06 23:49
PROVIDERS: ADMIT Psychiatry & Neurology Psychiatry; ATTEND Student in an Organized Health Care Education/Training Program
DX: F20.9 Schizophrenia, unspecified (principal); F43.20 Adjustment disorder, unspecified; F33.1 Major depressive disorder, recurrent, moderate; F60.89 Other specific personality disorders; E07.9 Disorder of thyroid, unspecified; R51.9 Headache, unspecified; F12.10 Cannabis abuse, uncomplicated; R45.851 Suicidal ideations; F41.9 Anxiety disorder, unspecified; F17.200 Nicotine dependence, unspecified, uncomplicated; Z81.8 Family history of other mental and behavioral disorders; Z59.00 Homelessness unspecified; Z20.822 Contact with and (suspected) exposure to COVID-19; Z79.899 Other long term (current) drug therapy; Z88.8 Allergy status to other drugs, medicaments and biological substances; Z81.1 Family history of alcohol abuse and dependence

== ENCOUNTER 2023-11-23 20:52 | Inpatient (IN) | payer MEDICAID, OTHER ==
[~2023-11-23] VITALS: Ht 180.3 cm; Wt 82.0 kg
[~2023-11-23 20:52] MED LIST changes: +ARIP1TAB43 PO; +BENZ200C70 PO; +CELE40TA PO; +FLUO-290 PO; -FLUO10CA18 PO; +MINI1CAP PO; +MIRT-10 PO; +MOUKOT60 MT; +OMEP-173 PO; +PROM25TA12 PO; +SUCR1TA PO; +med rec comment
[2023-11-23 21:28] LABS: HEMATOCRIT 46.9 % (42.0-52.0); HEMOGLOBIN 16.1 g/dl (13.5-17.5); MEAN CORPUSCULAR HGB CONC 34.3 g/dl (32.0-36.5); MEAN CORPUSCULAR VOLUME 90.2 fl (80.0-96.0); PLATELET COUNT, AUTOMATED 290 10^3/uL (150-450); WHITE BLOOD COUNT 9.4 10^3/uL (4.0-10.0)
[2023-11-23 21:57] LABS: AMPHETAMINES LEVEL URINE NEGATIVE (NEGATIVE); BARBITURATES URINE NEGATIVE (NEGATIVE); BENZODIAZEPINES URINE NEGATIVE (NEGATIVE); COCAINE METABOLITE URINE NEGATIVE (NEGATIVE); METHADONE URINE NEGATIVE (NEGATIVE); OPIATES URINE NEGATIVE (NEGATIVE); PHENCYCLIDINE URINE NEGATIVE (NEGATIVE)
[2023-11-23 21:58] LABS: ETHYL ALCOHOL (ETHANOL) 0.004 % (0.000-0.010)
[2023-11-23 21:59] LABS: ALBUMIN 3.9 G/DL (3.2-5.2); ALKALINE PHOSPHATASE 65 U/L (46-116); ALT/SGPT 22 U/L (7.0-40); AST/SGOT 15 U/L (<34); BILIRUBIN,DIRECT 0.2 MG/DL (<0.4); BILIRUBIN,TOTAL 0.6 MG/DL (0.3-1.2); BLOOD UREA NITROGEN 22 MG/DL (9-23); CALCIUM LEVEL 9.5 MG/DL (8.5-10.1); CARBON DIOXIDE LEVEL 27 MMOL/L (20-31); CHLORIDE LEVEL 108 MMOL/L (98-107); GLOMERULAR FILTRATION RATE > 60.0 (>60); GLUCOSE, FASTING 86 MG/DL (60-100); POTASSIUM SERUM 4.2 MMOL/L (3.5-5.1); SALICYLATE LEVEL < 3.0 MG/DL (<30); SODIUM LEVEL 142 MMOL/L (136-145); TOTAL PROTEIN 6.6 G/DL (5.7-8.2)
[2023-11-23 22:03] LABS: THYROID STIMULATING HORMONE 0.904 uIU/ML (0.55-4.78)
[2023-11-23 22:11] LABS: CANNABINOIDS URINE POSITIVE (NEGATIVE)
[2023-11-24] MEDS: OLANZapine ORAL DISINTEGRATING TAB 5MG PO ONE (04:09)
[2023-11-24] MEDS: NICOTINE 21MG/24HR 1 EA TRANSDERMAL TD ONE ×2 (04:40→17:06)
[2023-11-24] MEDS: HALOPERIDOL 5MG/ML 1ML VIAL IM ONE (05:12)
[2023-11-24] MEDS: diphenhydrAMINE 50MG/ML VIAL IM ONE (05:12)
[2023-11-24] MEDS: LORazepam 2 MG/ML 1ML VIAL IM ONE (05:13)
[2023-11-24] MEDS ORDERED: TRAZ-257 PO (05:45)
[2023-11-24] MEDS ORDERED: PRAZ2CAP (05:45)
[2023-11-24] MEDS ORDERED: MIRT1TAB (05:45)
[2023-11-24] MEDS ORDERED: CITA40TA7 (05:45)
[2023-11-24] MEDS ORDERED: NICO1DIS12 (05:45)
[2023-11-24] MEDS ORDERED: PRAZ1CAP (05:45)
[2023-11-24] MEDS ORDERED: MED REC CURRENTLY UNOBTAINABLE XX SCH (07:20)
[2023-11-24] MEDS ORDERED: MOM 30ML SUSPENSION UDC PO PRN (11:00)
[2023-11-24] MEDS: CitaloPRAM (CeleXA) 20 MG TAB PO SCH (12:10)
[2023-11-24] MEDS ORDERED: PRAZ2CAP PO (12:23)
[2023-11-24] MEDS ORDERED: CITA40TA6 PO (12:23)
[2023-11-24] MEDS ORDERED: ARIP1TAB43 PO (12:23)
[2023-11-24] MEDS ORDERED: HOME MED LIST COMPLETE! XX SCH (12:25)
[2023-11-24 14:44] VITALS: BP 126/67; TEMP 97; O2SAT 100
[2023-11-24] MEDS: OLANZapine ORAL DISINTEGRATING TAB 5MG PO PRN (18:48)
[2023-11-24] MEDS: traZODone 50 MG TAB PO PRN (20:14)
[2023-11-24] MEDS: ARIPiprazole 10 MG TAB PO SCH (20:14)
[2023-11-24] MEDS: BENZTROPINE 1 MG TAB PO SCH (20:14)
[2023-11-24] MEDS: GABAPENTIN 300 MG CAP PO SCH (20:14)
[2023-11-24] MEDS: PRAZOSIN 1 MG CAP PO SCH (20:16)
[2023-11-24] MEDS: IBUPROFEN 400MG TAB PO PRN (21:14)
[2023-11-25 06:17] VITALS: BP 132/71; TEMP 98.1; O2SAT 97
[2023-11-25] MEDS: LORazepam 1 MG TAB PO PRN (08:18)
[2023-11-25] MEDS: NICOTINE 21MG/24HR 1 EA TRANSDERMAL TD SCH (09:00)
[2023-11-25] MEDS: MAALOX 30 ML SUSP *UDC PO PRN (17:35)
[2023-11-25 17:57] VITALS: BP 138/68; TEMP 97.5; O2SAT 98
[2023-11-25] MEDS: ACETAMINOPHEN TAB 650MG DOSE (2X325MG) PO PRN (19:30)
[2023-11-25 20:31] VITALS: BP 138/68
[2023-11-25] MEDS: traZODone 100 MG TAB PO SCH (20:31)
[2023-11-26] MEDS: diphenhydrAMINE 25MG CAP PO PRN (02:11)
[2023-11-26 06:27] VITALS: BP 138/91; TEMP 97.4; O2SAT 97
[2023-11-26] MEDS ORDERED: GABA-282 PO (08:50)
[2023-11-26] MEDS ORDERED: BENZ1TAB5 PO (08:50)
[2023-11-26] MEDS ORDERED: NICO21PAT TD (08:50)
[2023-11-26] MEDS ORDERED: CITA40TA6 PO (08:50)
[2023-11-26] MEDS ORDERED: PRAZ2CAP PO (08:50)
[2023-11-26] MEDS ORDERED: ARIP1TAB43 PO (08:50)
[2023-11-26] MEDS ORDERED: TRAZ-257 PO (08:50)
== END 2023-11-26 10:15 | disposition home or self-care (01) | DRG 750 ==
LOC: M ED 20:52 → M ED INP 11-24 10:59 → M PSY 11-24 14:59
PROVIDERS: ADMIT Student in an Organized Health Care Education/Training Program; ATTEND Student in an Organized Health Care Education/Training Program
DX: F20.9 Schizophrenia, unspecified (principal); F12.90 Cannabis use, unspecified, uncomplicated; F17.200 Nicotine dependence, unspecified, uncomplicated; F41.9 Anxiety disorder, unspecified; K21.9 Gastro-esophageal reflux disease without esophagitis; G89.29 Other chronic pain; F43.10 Post-traumatic stress disorder, unspecified; R45.851 Suicidal ideations; Z56.3 Stressful work schedule; R45.850 Homicidal ideations; Z81.8 Family history of other mental and behavioral disorders; Z79.899 Other long term (current) drug therapy; Z88.8 Allergy status to other drugs, medicaments and biological substances; Z11.52 Encounter for screening for COVID-19

== ENCOUNTER 2023-12-01 14:07 | Inpatient (IN) | payer MEDICAID ==
[~2023-12-01] VITALS: Ht 180.3 cm; Wt 79.6 kg
[~2023-12-01 14:07] MED LIST changes: +CITA40TA6 PO; +CITA40TA7; +MIRT1TAB; +NICO1DIS12; +PRAZ1CAP; +PRAZ2CAP; +PRAZ2CAP PO; +TRAZ-257 PO
[2023-12-01 15:21] LABS: HEMATOCRIT 46.9 % (42.0-52.0); HEMOGLOBIN 16.3 g/dl (13.5-17.5); MEAN CORPUSCULAR HEMOGLOBIN 30.6 pg (27.0-33.0); MEAN CORPUSCULAR HGB CONC 34.8 g/dl (32.0-36.5); MEAN CORPUSCULAR VOLUME 88.2 fl (80.0-96.0); PLATELET COUNT, AUTOMATED 307 10^3/uL (150-450); RED BLOOD COUNT 5.32 10^6/uL (4.30-6.10); WHITE BLOOD COUNT 9.7 10^3/uL (4.0-10.0)
[2023-12-01 15:38] LABS: AMPHETAMINES LEVEL URINE NEGATIVE (NEGATIVE); BARBITURATES URINE NEGATIVE (NEGATIVE); BENZODIAZEPINES URINE NEGATIVE (NEGATIVE); COCAINE METABOLITE URINE NEGATIVE (NEGATIVE); METHADONE URINE NEGATIVE (NEGATIVE); OPIATES URINE NEGATIVE (NEGATIVE); PHENCYCLIDINE URINE NEGATIVE (NEGATIVE)
[2023-12-01 15:40] LABS: ETHYL ALCOHOL (ETHANOL) < 0.003 % (0.000-0.010)
[2023-12-01 15:42] LABS: ALBUMIN 3.7 G/DL (3.2-5.2); ALKALINE PHOSPHATASE 68 U/L (46-116); ALT/SGPT 48 U/L (7.0-40); AST/SGOT 76 U/L (<34); BILIRUBIN,DIRECT 0.2 MG/DL (<0.4); BILIRUBIN,TOTAL 0.4 MG/DL (0.3-1.2); BLOOD UREA NITROGEN 18 MG/DL (9-23); CALCIUM LEVEL 9.2 MG/DL (8.5-10.1); CARBON DIOXIDE LEVEL 26 MMOL/L (20-31); CHLORIDE LEVEL 110 MMOL/L (98-107); CREATININE FOR GFR 0.92 MG/DL (0.70-1.30); GLOMERULAR FILTRATION RATE > 60.0 (>60); GLUCOSE, FASTING 124 MG/DL (60-100); POTASSIUM SERUM 4.1 MMOL/L (3.5-5.1); SALICYLATE LEVEL < 3.0 MG/DL (<30); SODIUM LEVEL 143 MMOL/L (136-145); TOTAL PROTEIN 6.7 G/DL (5.7-8.2)
[2023-12-01 15:44] LABS: CANNABINOIDS URINE POSITIVE (NEGATIVE)
[2023-12-01 15:45] LABS: THYROID STIMULATING HORMONE 0.615 uIU/ML (0.55-4.78)
[2023-12-01] MEDS: GABAPENTIN 300 MG CAP PO SCH ×2 (16:11→21:12)
[2023-12-01] MEDS: NICOTINE 21MG/24HR 1 EA TRANSDERMAL TD SCH (16:11)
[2023-12-01] MEDS ORDERED: MOM 30ML SUSPENSION UDC PO PRN (18:15)
[2023-12-01] MEDS ORDERED: MAALOX 30 ML SUSP *UDC PO PRN (18:15)
[2023-12-01] MEDS ORDERED: NICO21DI37 TD (18:44)
[2023-12-01] MEDS ORDERED: CITA40TA7 PO (18:44)
[2023-12-01] MEDS ORDERED: HOME MED LIST COMPLETE! XX SCH (18:45)
[2023-12-01] MEDS ORDERED: PRAZOSIN 1 MG CAP PO SCH (21:00)
[2023-12-01] MEDS ORDERED: traZODone 100 MG TAB PO PRN (21:00)
[2023-12-01] MEDS ORDERED: BENZTROPINE 1 MG TAB PO SCH (21:00)
[2023-12-01] MEDS: traZODone 100 MG TAB PO PRN (21:12)
[2023-12-01] MEDS: ARIPiprazole 10 MG TAB PO SCH (21:12)
[2023-12-01] MEDS: PRAZOSIN 1 MG CAP PO SCH (21:12)
[2023-12-01] MEDS: BENZTROPINE 1 MG TAB PO SCH (21:24)
[2023-12-01 22:26] VITALS: BP 141/68; TEMP 97.5; O2SAT 98
[2023-12-01] MEDS: ACETAMINOPHEN TAB 650MG DOSE (2X325MG) PO PRN (22:33)
[2023-12-01] MEDS: diphenhydrAMINE 25MG CAP PO PRN (23:36)
[2023-12-01] MEDS: IBUPROFEN 400MG TAB PO PRN (23:37)
[2023-12-02 06:37] VITALS: BP 151/70; TEMP 97.1; O2SAT 98
[2023-12-02] MEDS ORDERED: PANTOPRAZOLE 40MG TAB (PROTONIX) PO SCH (09:00)
[2023-12-02] MEDS ORDERED: CitaloPRAM (CeleXA) 20 MG TAB PO SCH (09:00)
[2023-12-02] MEDS: CitaloPRAM (CeleXA) 20 MG TAB PO SCH (09:07)
[2023-12-02] MEDS: PANTOPRAZOLE 40MG TAB (PROTONIX) PO SCH (09:07)
[2023-12-02] MEDS: NICOTINE 21MG/24HR 1 EA TRANSDERMAL TD PRN (09:17)
[2023-12-02] MEDS: LORazepam 2 MG TAB PO ONE (11:05)
[2023-12-02 18:30] VITALS: BP_SYST 130; BP_SYST 138; BP_DIAS 75; BP_DIAS 82; TEMP 97
[2023-12-03 06:44] VITALS: BP 128/59; TEMP 98; O2SAT 96
[2023-12-03] MEDS: INFLUENZA QUADRIVALENT PF VACCINE 0.5ML SYRINGE IM.IMMUN ONE (10:55)
[2023-12-03] MEDS: NICOTINE POLACRILEX 2 MG GUM PO PRN (10:58)
[2023-12-03] MEDS: LIDOCAINE 5% (LIDODERM) PATCH TD SCH ×2 (13:27)
[2023-12-03 16:40] VITALS: BP 124/75; TEMP 97.5; O2SAT 98
[2023-12-03 20:32] VITALS: BP 124/67
[2023-12-04 06:35] VITALS: BP_SYST 118; BP_SYST 124; BP_DIAS 63; BP_DIAS 79; TEMP 96.7; TEMP 97.4; O2SAT 100; O2SAT 96
[2023-12-04] MEDS: LORazepam 1 MG TAB PO ONE (12:23)
[2023-12-04 16:51] VITALS: BP 123/65; TEMP 97.1; O2SAT 99
[2023-12-04 19:58] VITALS: BP 140/78
[2023-12-04] MEDS: ARIPiprazole 10 MG TAB PO SCH (20:01)
[2023-12-04] MEDS ORDERED: ARIPiprazole 15 MG TAB (AbiLIFY) PO SCH (21:00)
[2023-12-04 21:29] VITALS: BP 123/79
[2023-12-05] MEDS: SODIUM CHLORIDE NASAL 0.65% SPRAY BTL (OCEAN) PRN (02:55)
[2023-12-05 06:28] VITALS: BP 116/80; TEMP 97.6; O2SAT 98
[2023-12-05] MEDS: LORazepam 1 MG TAB PO ONE (09:37)
[2023-12-05 16:17] VITALS: BP 129/64; TEMP 97.9; O2SAT 97
[2023-12-05] MEDS: MIRTAZAPINE 15 MG TAB PO SCH (20:10)
[2023-12-06 06:15] VITALS: BP 116/69; TEMP 97.7; O2SAT 96
[2023-12-06] MEDS ORDERED: MIRT-10 PO (10:47)
== END 2023-12-06 11:04 | disposition home or self-care (01) | DRG 750 ==
LOC: M ED 14:07 → M ED INP 18:14 → M PSY 22:07
PROVIDERS: ADMIT Student in an Organized Health Care Education/Training Program; ATTEND Student in an Organized Health Care Education/Training Program
DX: F20.9 Schizophrenia, unspecified (principal); F12.90 Cannabis use, unspecified, uncomplicated; F17.200 Nicotine dependence, unspecified, uncomplicated; F41.9 Anxiety disorder, unspecified; M25.561 Pain in right knee; F17.290 Nicotine dependence, other tobacco product, uncomplicated; R45.850 Homicidal ideations; K21.9 Gastro-esophageal reflux disease without esophagitis; M54.9 Dorsalgia, unspecified; G89.29 Other chronic pain; Z79.899 Other long term (current) drug therapy; Z88.8 Allergy status to other drugs, medicaments and biological substances; Z11.52 Encounter for screening for COVID-19; Z62.810 Personal history of physical and sexual abuse in childhood; Z56.0 Unemployment, unspecified; Z81.8 Family history of other mental and behavioral disorders; Z81.1 Family history of alcohol abuse and dependence

== ENCOUNTER 2023-12-08 11:52 | Emergency (ER) | payer MEDICAID, OTHER ==
[~2023-12-08] VITALS: Ht 180.3 cm; Wt 79.5 kg
[~2023-12-08 11:52] MED LIST changes: +CITA40TA7 PO; +NICO21DI37 TD
[2023-12-08 12:22] VITALS: BP 138/75; TEMP 98.5; O2SAT 97
[2023-12-08 12:53] LABS: BASO # 0.1 10^3/uL (0.0-0.2); BASO % 0.6 % (0.0-1.0); EOS # 0.1 10^3/uL (0.0-0.5); EOS % 1.1 % (0.0-3.0); HEMATOCRIT 49.7 % (42.0-52.0); HEMOGLOBIN 17.4 g/dl (13.5-17.5); LYMPH # 2.8 10^3/uL (1.5-5.0); LYMPH % 22.5 % (24.0-44.0); MEAN CORPUSCULAR HEMOGLOBIN 30.8 pg (27.0-33.0); MONO # 0.6 10^3/uL (0.0-0.8); MONO % 5.1 % (2.0-8.0); NEUTROPHILS # 8.6 10^3/uL (1.5-8.5); NEUTROPHILS % 69.6 % (36.0-66.0); PLATELET COUNT, AUTOMATED 294 10^3/uL (150-450); RED BLOOD COUNT 5.65 10^6/uL (4.30-6.10); WHITE BLOOD COUNT 12.3 10^3/uL (4.0-10.0)
[2023-12-08 13:05] LABS: INR 1.13; PROTHROMBIN TIME 14.2 SECONDS (12.5-14.5)
[2023-12-08 13:22] LABS: LIPASE 24 U/L (12-53)
[2023-12-08 13:24] LABS: ALBUMIN 4.1 G/DL (3.2-5.2); ALKALINE PHOSPHATASE 72 U/L (46-116); ALT/SGPT 40 U/L (7.0-40); AST/SGOT 28 U/L (<34); BILIRUBIN,DIRECT 0.1 MG/DL (<0.4); BILIRUBIN,TOTAL 0.4 MG/DL (0.3-1.2); BLOOD UREA NITROGEN 18 MG/DL (9-23); CALCIUM LEVEL 9.4 MG/DL (8.5-10.1); CARBON DIOXIDE LEVEL 27 MMOL/L (20-31); CHLORIDE LEVEL 105 MMOL/L (98-107); CK-MB VALUE MASS 7.8 NG/ML (<3.6); CREATININE FOR GFR 0.88 MG/DL (0.70-1.30); GLOMERULAR FILTRATION RATE > 60.0 (>60); GLUCOSE, FASTING 95 MG/DL (60-100); POTASSIUM SERUM 4.8 MMOL/L (3.5-5.1); SODIUM LEVEL 139 MMOL/L (136-145); TOTAL PROTEIN 6.8 G/DL (5.7-8.2)
[2023-12-08 13:25] LABS: CPK CREATINE PHOSPHOKINASE 498 U/L (46-171); MB/CK RELATIVE INDEX 1.56 (< OR =4)
== END 2023-12-08 13:25 | disposition left against medical advice (07) ==
LOC: EDBD 11:52 → M ED 11:52
DX: Z53.21 Procedure and treatment not carried out due to patient leaving prior to being seen by health care provider (principal)

== ENCOUNTER 2023-12-10 19:12 | Emergency (ER) | payer MEDICAID, OTHER ==
[~2023-12-10] VITALS: Ht 180.3 cm; Wt 85.1 kg
[2023-12-10 20:00] LABS: HEMOGLOBIN 15.5 g/dl (13.5-17.5); MEAN CORPUSCULAR HEMOGLOBIN 30.9 pg (27.0-33.0); MEAN CORPUSCULAR HGB CONC 34.4 g/dl (32.0-36.5); MEAN CORPUSCULAR VOLUME 89.6 fl (80.0-96.0); PLATELET COUNT, AUTOMATED 293 10^3/uL (150-450); RED BLOOD COUNT 5.02 10^6/uL (4.30-6.10); WHITE BLOOD COUNT 12.2 10^3/uL (4.0-10.0)
[2023-12-10 20:20] LABS: BARBITURATES URINE NEGATIVE (NEGATIVE); COCAINE METABOLITE URINE NEGATIVE (NEGATIVE); METHADONE URINE NEGATIVE (NEGATIVE); OPIATES URINE NEGATIVE (NEGATIVE)
[2023-12-10 20:21] LABS: AMPHETAMINES LEVEL URINE NEGATIVE (NEGATIVE); BENZODIAZEPINES URINE NEGATIVE (NEGATIVE); PHENCYCLIDINE URINE NEGATIVE (NEGATIVE)
[2023-12-10 20:22] LABS: ETHYL ALCOHOL (ETHANOL) < 0.003 % (0.000-0.010)
[2023-12-10 20:23] LABS: CANNABINOIDS URINE POSITIVE (NEGATIVE)
[2023-12-10 20:24] LABS: ALBUMIN 3.9 G/DL (3.2-5.2); ALKALINE PHOSPHATASE 83 U/L (46-116); ALT/SGPT 34 U/L (7.0-40); AST/SGOT 22 U/L (<34); BILIRUBIN,DIRECT 0.1 MG/DL (<0.4); BILIRUBIN,TOTAL 0.3 MG/DL (0.3-1.2); BLOOD UREA NITROGEN 22 MG/DL (9-23); CALCIUM LEVEL 9.4 MG/DL (8.5-10.1); CARBON DIOXIDE LEVEL 26 MMOL/L (20-31); CHLORIDE LEVEL 107 MMOL/L (98-107); CREATININE FOR GFR 0.94 MG/DL (0.70-1.30); GLOMERULAR FILTRATION RATE > 60.0 (>60); GLUCOSE, FASTING 84 MG/DL (60-100); POTASSIUM SERUM 4.4 MMOL/L (3.5-5.1); SALICYLATE LEVEL < 3.0 MG/DL (<30); SODIUM LEVEL 140 MMOL/L (136-145); TOTAL PROTEIN 6.5 G/DL (5.7-8.2)
[2023-12-10 20:26] LABS: THYROID STIMULATING HORMONE 0.538 uIU/ML (0.55-4.78)
[2023-12-10 20:56] LABS: FREE T4 0.84 NG/DL (0.89-1.76)
[2023-12-10] MEDS ORDERED: MIRT1TAB15 PO (21:22)
[2023-12-10] MEDS ORDERED: HOME MED LIST COMPLETE! XX SCH (21:25)
[2023-12-10] MEDS: ARIPiprazole 10 MG TAB PO SCH (22:43)
[2023-12-10] MEDS: GABAPENTIN 300 MG CAP PO SCH (22:43)
[2023-12-10 22:44] VITALS: BP 130/69
[2023-12-10] MEDS: traZODone 100 MG TAB PO PRN (22:44)
[2023-12-10] MEDS: PRAZOSIN 1 MG CAP PO SCH (22:44)
[2023-12-10] MEDS: BENZTROPINE 1 MG TAB PO SCH (22:45)
[2023-12-10] MEDS: MIRTAZAPINE 15 MG TAB PO SCH (22:45)
[2023-12-11] MEDS: LORazepam 1 MG TAB PO ONE (06:43)
[2023-12-11] MEDS: PANTOPRAZOLE 40MG TAB (PROTONIX) PO SCH (09:18)
[2023-12-11] MEDS: CitaloPRAM (CeleXA) 20 MG TAB PO SCH (09:18)
[2023-12-11 15:50] VITALS: BP 133/66; TEMP 98.2; O2SAT 98
== END 2023-12-11 15:58 ==
LOC: M ED 19:12
DX: R45.851 Suicidal ideations (principal); R45.850 Homicidal ideations; F32.A Depression, unspecified; F17.290 Nicotine dependence, other tobacco product, uncomplicated; Z79.899 Other long term (current) drug therapy; Z88.8 Allergy status to other drugs, medicaments and biological substances

== ENCOUNTER 2023-12-29 01:14 | Emergency (ER) | payer MEDICAID, OTHER ==
[~2023-12-29] VITALS: Ht 180.3 cm; Wt 82.0 kg
[~2023-12-29 01:14] MED LIST changes: +MIRT1TAB15 PO; +ONDA-282 PO; -ONDA4TAB6 PO
[2023-12-29] MEDS: NS 1,000 ML IV ONE (01:43)
[2023-12-29 02:08] LABS: BASO % 0.3 % (0.0-1.0); EOS # 0.4 10^3/uL (0.0-0.5); EOS % 4.2 % (0.0-3.0); HEMOGLOBIN 15.6 g/dl (13.5-17.5); LYMPH # 3.8 10^3/uL (1.5-5.0); LYMPH % 40.6 % (24.0-44.0); MEAN CORPUSCULAR HEMOGLOBIN 31.1 pg (27.0-33.0); MEAN CORPUSCULAR HGB CONC 34.7 g/dl (32.0-36.5); MEAN CORPUSCULAR VOLUME 89.6 fl (80.0-96.0); MONO # 0.7 10^3/uL (0.0-0.8); MONO % 7.4 % (2.0-8.0); NEUTROPHILS # 4.4 10^3/uL (1.5-8.5); NEUTROPHILS % 47.1 % (36.0-66.0); PLATELET COUNT, AUTOMATED 279 10^3/uL (150-450); RED BLOOD COUNT 5.02 10^6/uL (4.30-6.10); WHITE BLOOD COUNT 9.4 10^3/uL (4.0-10.0)
[2023-12-29 02:18] LABS: ETHYL ALCOHOL (ETHANOL) < 0.003 % (0.000-0.010)
[2023-12-29 02:19] LABS: SALICYLATE LEVEL < 3.0 MG/DL (<30)
[2023-12-29 02:20] LABS: ALBUMIN 3.9 G/DL (3.2-5.2); ALKALINE PHOSPHATASE 71 U/L (46-116); ALT/SGPT 37 U/L (7.0-40); AST/SGOT 15 U/L (<34); BILIRUBIN,DIRECT 0.1 MG/DL (<0.4); BILIRUBIN,TOTAL 0.5 MG/DL (0.3-1.2); BLOOD UREA NITROGEN 20 MG/DL (9-23); CALCIUM LEVEL 9.6 MG/DL (8.5-10.1); CARBON DIOXIDE LEVEL 28 MMOL/L (20-31); CHLORIDE LEVEL 107 MMOL/L (98-107); CREATININE FOR GFR 1.01 MG/DL (0.70-1.30); GLOMERULAR FILTRATION RATE > 60.0 (>60); GLUCOSE, FASTING 130 MG/DL (60-100); POTASSIUM SERUM 3.6 MMOL/L (3.5-5.1); SODIUM LEVEL 141 MMOL/L (136-145); TOTAL PROTEIN 6.4 G/DL (5.7-8.2)
[2023-12-29 02:31] LABS: CPK CREATINE PHOSPHOKINASE 317 U/L (46-171)
[2023-12-29 07:39] LABS: AMPHETAMINES LEVEL URINE NEGATIVE (NEGATIVE); BARBITURATES URINE NEGATIVE (NEGATIVE); BENZODIAZEPINES URINE NEGATIVE (NEGATIVE); COCAINE METABOLITE URINE NEGATIVE (NEGATIVE); METHADONE URINE NEGATIVE (NEGATIVE); OPIATES URINE NEGATIVE (NEGATIVE); PHENCYCLIDINE URINE NEGATIVE (NEGATIVE)
[2023-12-29 07:40] LABS: CANNABINOIDS URINE POSITIVE (NEGATIVE)
[2023-12-29 13:19] VITALS: BP 104/53; TEMP 97.8; O2SAT 100
== END 2023-12-29 14:05 | disposition home or self-care (01) ==
LOC: M ED 01:14
DX: F39 Unspecified mood [affective] disorder (principal); F17.200 Nicotine dependence, unspecified, uncomplicated; F12.10 Cannabis abuse, uncomplicated; Z88.8 Allergy status to other drugs, medicaments and biological substances; Z79.83 Long term (current) use of bisphosphonates; Z79.899 Other long term (current) drug therapy

== ENCOUNTER 2024-01-03 23:05 | Observation (INO) | payer OTHER ==
[~2024-01-03] VITALS: Ht 180.3 cm; Wt 78.1 kg
[2024-01-03 23:53] LABS: HEMATOCRIT 47.2 % (42.0-52.0); HEMOGLOBIN 16.6 g/dl (13.5-17.5); MEAN CORPUSCULAR HEMOGLOBIN 30.7 pg (27.0-33.0); MEAN CORPUSCULAR HGB CONC 35.2 g/dl (32.0-36.5); MEAN CORPUSCULAR VOLUME 87.4 fl (80.0-96.0); PLATELET COUNT, AUTOMATED 281 10^3/uL (150-450)
[2024-01-04 00:27] LABS: ETHYL ALCOHOL (ETHANOL) < 0.003 % (0.000-0.010)
[2024-01-04 00:28] LABS: SALICYLATE LEVEL < 3.0 MG/DL (<30)
[2024-01-04 00:29] LABS: ALBUMIN 4.1 G/DL (3.2-5.2); ALKALINE PHOSPHATASE 67 U/L (46-116); ALT/SGPT 23 U/L (7.0-40); AST/SGOT 10 U/L (<34); BILIRUBIN,DIRECT 0.2 MG/DL (<0.4); BILIRUBIN,TOTAL 0.5 MG/DL (0.3-1.2); BLOOD UREA NITROGEN 21 MG/DL (9-23); CALCIUM LEVEL 9.9 MG/DL (8.5-10.1); CARBON DIOXIDE LEVEL 28 MMOL/L (20-31); CHLORIDE LEVEL 108 MMOL/L (98-107); CREATININE FOR GFR 1.08 MG/DL (0.70-1.30); GLOMERULAR FILTRATION RATE > 60.0 (>60); GLUCOSE, FASTING 138 MG/DL (60-100); POTASSIUM SERUM 3.7 MMOL/L (3.5-5.1); SODIUM LEVEL 144 MMOL/L (136-145); TOTAL PROTEIN 6.8 G/DL (5.7-8.2)
[2024-01-04] MEDS: NS 1,000 ML IV SCH (01:16)
[2024-01-04 02:00] LABS: AMPHETAMINES LEVEL URINE NEGATIVE (NEGATIVE); BARBITURATES URINE NEGATIVE (NEGATIVE); BENZODIAZEPINES URINE NEGATIVE (NEGATIVE); COCAINE METABOLITE URINE NEGATIVE (NEGATIVE); METHADONE URINE NEGATIVE (NEGATIVE); OPIATES URINE NEGATIVE (NEGATIVE); PHENCYCLIDINE URINE NEGATIVE (NEGATIVE)
[2024-01-04 02:01] LABS: CANNABINOIDS URINE POSITIVE (NEGATIVE)
[2024-01-04] MEDS ORDERED: SODIUM CHLORIDE 0.9% 1000ML IV ONE (03:00)
[2024-01-04 03:05] VITALS: BP 115/62; TEMP 97.5; O2SAT 99
[2024-01-04] MEDS: ENOXAPARIN 40MG/0.4ML SYRINGE (J1650 PER 10MG) SC SCH (08:51)
[2024-01-04 08:55] VITALS: BP 114/65; TEMP 97.1; O2SAT 98
[2024-01-04] MEDS ORDERED: GABA-284 PO (08:57)
[2024-01-04] MEDS ORDERED: VITA100093 PO (09:04)
[2024-01-04] MEDS ORDERED: HYDR50TA70 PO (09:04)
[2024-01-04] MEDS ORDERED: QUET1TAB17 PO (09:04)
[2024-01-04] MEDS ORDERED: HOME MED LIST COMPLETE! XX SCH (09:05)
[2024-01-04] MEDS: FIORICET TAB PO ONE (10:20)
[2024-01-04 12:00] VITALS: BP 113/70; TEMP 98.2; O2SAT 99
[2024-01-04] MEDS ORDERED: FIORICET TAB PO PRN (14:00)
[2024-01-04] MEDS: ONDANSETRON 4MG ORAL DISINTEGRATING TAB PO PRN (18:54)
[2024-01-04 20:00] VITALS: BP 102/50; TEMP 97.1; O2SAT 100
[2024-01-05 06:00] VITALS: BP 106/59; TEMP 97.2; O2SAT 93
[2024-01-05 06:02] LABS: HEMATOCRIT 46.9 % (42.0-52.0); MEAN CORPUSCULAR HEMOGLOBIN 30.5 pg (27.0-33.0); MEAN CORPUSCULAR HGB CONC 34.1 g/dl (32.0-36.5); MEAN CORPUSCULAR VOLUME 89.3 fl (80.0-96.0); PLATELET COUNT, AUTOMATED 258 10^3/uL (150-450); RED BLOOD COUNT 5.25 10^6/uL (4.30-6.10)
[2024-01-05 06:39] LABS: BLOOD UREA NITROGEN 13 MG/DL (9-23); CALCIUM LEVEL 9.2 MG/DL (8.5-10.1); CARBON DIOXIDE LEVEL 30 MMOL/L (20-31); CHLORIDE LEVEL 110 MMOL/L (98-107); CREATININE FOR GFR 1.11 MG/DL (0.70-1.30); GLOMERULAR FILTRATION RATE > 60.0 (>60); GLUCOSE, FASTING 95 MG/DL (60-100); POTASSIUM SERUM 4.6 MMOL/L (3.5-5.1); SODIUM LEVEL 144 MMOL/L (136-145)
[2024-01-05] MEDS: NS 1,000 ML IV ONE ×2 (10:10→14:12)
[2024-01-05] MEDS: PROMETHAZINE 25MG/ML 1ML VIAL IV ONE (13:46)
[2024-01-05] MEDS: KETOROLAC 30 MG/ML 1ML VIAL IV SCH (13:47)
[2024-01-05] MEDS ORDERED: HYDROMORPHONE HCL 0.5 MG/ 0.5 ML SYRINGE IV ONE (13:50)
[2024-01-05] MEDS ORDERED: ONDANSETRON 4MG ORAL DISINTEGRATING TAB SL PRN (14:10)
[2024-01-05] MEDS ORDERED: PERCOCET 5MG/325MG TAB PO PRN (14:10)
[2024-01-05] MEDS: PERCOCET 5MG/325MG TAB PO ONE (15:27)
[2024-01-05] MEDS ORDERED: PROMETHAZINE 25MG/ML 1ML VIAL IV PRN (18:00)
[2024-01-05] MEDS ORDERED: MIRT-88 PO (19:37)
[2024-01-05] MEDS ORDERED: NICO21DI38 TD (19:37)
[2024-01-05] MEDS ORDERED: TRAZ1TAB12 PO (19:37)
[2024-01-05] MEDS ORDERED: PRAZ2CAP40 PO (19:37)
[2024-01-05] MEDS ORDERED: D31000TA PO (19:37)
[2024-01-05] MEDS ORDERED: HYDR50TA70 PO (19:37)
== END 2024-01-05 17:15 ==
LOC: M ED 23:05 → M ED INP 23:06 → M MSPAV 01-04 03:03
PROVIDERS: ADMIT Internal Medicine; ATTEND General Practice
DX: T43.292A Poisoning by other antidepressants, intentional self-harm, initial encounter (principal); F06.30 Mood disorder due to known physiological condition, unspecified; R45.851 Suicidal ideations; F17.218 Nicotine dependence, cigarettes, with other nicotine-induced disorders; K21.9 Gastro-esophageal reflux disease without esophagitis; R00.1 Bradycardia, unspecified; M54.50 Low back pain, unspecified; Z79.899 Other long term (current) drug therapy; Z88.8 Allergy status to other drugs, medicaments and biological substances
CPT/HCPCS: 36415; 70450; 72125; 74018; 80048; 80076; 80143; 80307; 82077; 84443; 85027; 93005; 93041; 94760; 96360; 96361; 99285; J1650

== ENCOUNTER 2024-01-05 14:50 | Inpatient (IN) | payer MEDICAID, OTHER ==
[~2024-01-05] VITALS: Ht 180.3 cm; Wt 81.7 kg
[~2024-01-05 14:50] MED LIST changes: +GABA-284 PO; +QUET1TAB17 PO; +VITA100093 PO
[2024-01-05] MEDS ORDERED: MOM 30ML SUSPENSION UDC PO PRN (16:30)
[2024-01-05] MEDS ORDERED: MAALOX 30 ML SUSP *UDC PO PRN (16:30)
[2024-01-05] MEDS ORDERED: HOME MED LIST COMPLETE! XX SCH ×2 (17:20→19:40)
[2024-01-05 17:21] VITALS: BP 132/78; TEMP 97.4; O2SAT 97
[2024-01-05] MEDS ORDERED: PRAZ2CAP40 PO (19:37)
[2024-01-05] MEDS ORDERED: HYDR50TA70 PO (19:37)
[2024-01-05] MEDS ORDERED: MIRT-88 PO (19:37)
[2024-01-05] MEDS ORDERED: D31000TA PO (19:37)
[2024-01-05] MEDS ORDERED: TRAZ1TAB12 PO (19:37)
[2024-01-05] MEDS ORDERED: NICO21DI38 TD (19:37)
[2024-01-05] MEDS: IBUPROFEN 400MG TAB PO PRN (20:28)
[2024-01-05] MEDS: MIRTAZAPINE 15 MG TAB PO SCH (20:28)
[2024-01-05] MEDS ORDERED: ARIPiprazole 10 MG TAB PO SCH (21:00)
[2024-01-05] MEDS: traZODone 50 MG TAB PO PRN (22:37)
[2024-01-06 06:00] VITALS: BP 100/54; TEMP 97.2; O2SAT 99
[2024-01-06] MEDS ORDERED: VITAMIN D 1,000 INTERNATIONAL UNITS TABLET PO SCH (09:00)
[2024-01-06] MEDS: NICOTINE 21MG/24HR 1 EA TRANSDERMAL TD SCH (10:54)
[2024-01-06] MEDS: GABAPENTIN 400MG CAP PO SCH (10:54)
[2024-01-06] MEDS: PANTOPRAZOLE 40MG TAB (PROTONIX) PO SCH (10:55)
[2024-01-06] MEDS: BENZTROPINE 0.5 MG TAB PO SCH (10:55)
[2024-01-06] MEDS: VITAMIN D 1,000 INTERNATIONAL UNITS TABLET PO SCH (15:01)
[2024-01-06] MEDS: PERCOCET 5MG/325MG TAB PO ONE (15:02)
[2024-01-06 17:19] VITALS: BP 156/78; TEMP 98.3; O2SAT 98
[2024-01-06] MEDS: IBUPROFEN 200MG TAB PO SCH (18:10)
[2024-01-06] MEDS: QUEtiapine FUMARATE 25 MG TAB PO SCH (21:32)
[2024-01-06] MEDS: LIDOCAINE 5% OINT 30GM TUBE TOP SCH (21:33)
[2024-01-07 07:03] VITALS: BP 125/59; TEMP 97.5; O2SAT 96
[2024-01-07 10:55] LABS: CHOLESTEROL RISK RATIO 3.65 (<5); HDL CHOLESTEROL 35.8 MG/DL (>40); LDL CHOLESTEROL 56.8 MG/DL (<100); NON-HDL-C 95.2 MG/DL
[2024-01-07 15:35] VITALS: BP 119/63; TEMP 97.2; O2SAT 99
[2024-01-07] MEDS: ACETAMINOPHEN TAB 650MG DOSE (2X325MG) PO PRN (20:54)
[2024-01-08 06:37] VITALS: BP 156/66; TEMP 97.1; O2SAT 100
[2024-01-08 16:10] VITALS: BP 132/74; TEMP 97.9; O2SAT 98
[2024-01-08] MEDS: diphenhydrAMINE 25MG CAP PO PRN (20:57)
[2024-01-09 00:35] VITALS: BP 137/63; TEMP 97; O2SAT 98
[2024-01-09] MEDS: IBUPROFEN 400MG TAB PO ONE (00:51)
[2024-01-09 06:21] VITALS: BP 109/61; TEMP 97; O2SAT 98
[2024-01-09 16:22] VITALS: BP 132/62; TEMP 98.3; O2SAT 99
[2024-01-10 06:51] VITALS: BP 139/69; TEMP 97.1; O2SAT 99
[2024-01-10] MEDS ORDERED: LIDO5OIN19 TOP (09:06)
== END 2024-01-10 13:06 | disposition home or self-care (01) | DRG 750 ==
LOC: M ED INP 14:50 → M PSY 17:16
PROVIDERS: ADMIT Student in an Organized Health Care Education/Training Program; ATTEND Student in an Organized Health Care Education/Training Program
DX: F20.9 Schizophrenia, unspecified (principal); R45.851 Suicidal ideations; F12.90 Cannabis use, unspecified, uncomplicated; F17.200 Nicotine dependence, unspecified, uncomplicated; F41.9 Anxiety disorder, unspecified; F60.3 Borderline personality disorder; K21.9 Gastro-esophageal reflux disease without esophagitis; M54.59 Other low back pain; Z79.899 Other long term (current) drug therapy; Z88.8 Allergy status to other drugs, medicaments and biological substances

== ENCOUNTER 2024-01-25 16:36 | Inpatient (IN) | payer MEDICAID, OTHER ==
[~2024-01-25] VITALS: Ht 180.3 cm; Wt 80.6 kg
[~2024-01-25 16:36] MED LIST changes: +D31000TA PO; +LIDO5OIN19 TOP; +MIRT-88 PO; +NICO21DI38 TD; +PRAZ2CAP40 PO; +TRAZ1TAB12 PO
[2024-01-25 18:13] LABS: HEMATOCRIT 44.5 % (42.0-52.0); HEMOGLOBIN 15.2 g/dl (13.5-17.5); MEAN CORPUSCULAR HEMOGLOBIN 30.1 pg (27.0-33.0); MEAN CORPUSCULAR HGB CONC 34.2 g/dl (32.0-36.5); MEAN CORPUSCULAR VOLUME 88.1 fl (80.0-96.0); PLATELET COUNT, AUTOMATED 282 10^3/uL (150-450); RED BLOOD COUNT 5.05 10^6/uL (4.30-6.10); WHITE BLOOD COUNT 8.8 10^3/uL (4.0-10.0)
[2024-01-25 18:39] LABS: AMPHETAMINES LEVEL URINE NEGATIVE (NEGATIVE); BENZODIAZEPINES URINE NEGATIVE (NEGATIVE); COCAINE METABOLITE URINE NEGATIVE (NEGATIVE); METHADONE URINE NEGATIVE (NEGATIVE)
[2024-01-25 18:40] LABS: BARBITURATES URINE NEGATIVE (NEGATIVE); OPIATES URINE NEGATIVE (NEGATIVE); PHENCYCLIDINE URINE NEGATIVE (NEGATIVE)
[2024-01-25 18:41] LABS: CANNABINOIDS URINE POSITIVE (NEGATIVE); ETHYL ALCOHOL (ETHANOL) < 0.003 % (0.000-0.010)
[2024-01-25 18:43] LABS: ALKALINE PHOSPHATASE 57 U/L (46-116); ALT/SGPT 24 U/L (7.0-40); AST/SGOT < 8 U/L (<34); BILIRUBIN,DIRECT 0.1 MG/DL (<0.4); BILIRUBIN,TOTAL 0.3 MG/DL (0.3-1.2); BLOOD UREA NITROGEN 13 MG/DL (9-23); CALCIUM LEVEL 9.6 MG/DL (8.5-10.1); CARBON DIOXIDE LEVEL 25 MMOL/L (20-31); CHLORIDE LEVEL 108 MMOL/L (98-107); CREATININE FOR GFR 0.97 MG/DL (0.70-1.30); GLOMERULAR FILTRATION RATE > 60.0 (>60); GLUCOSE, FASTING 106 MG/DL (60-100); POTASSIUM SERUM 3.7 MMOL/L (3.5-5.1); SALICYLATE LEVEL < 3.0 MG/DL (<30); SODIUM LEVEL 141 MMOL/L (136-145); TOTAL PROTEIN 6.2 G/DL (5.7-8.2)
[2024-01-25 18:46] LABS: THYROID STIMULATING HORMONE 0.785 uIU/ML (0.55-4.78)
[2024-01-25] MEDS ORDERED: MOM 30ML SUSPENSION UDC PO PRN (21:25)
[2024-01-25] MEDS ORDERED: MAALOX 30 ML SUSP *UDC PO PRN (21:25)
[2024-01-25 23:36] VITALS: BP 123/73; TEMP 96.7; O2SAT 97
[2024-01-25] MEDS: traZODone 50 MG TAB PO PRN (23:44)
[2024-01-25] MEDS: diphenhydrAMINE 25MG CAP PO PRN (23:44)
[2024-01-26 06:21] VITALS: BP 105/52; TEMP 97.6; O2SAT 97
[2024-01-26] MEDS ORDERED: HOME MED LIST COMPLETE! XX SCH (08:00)
[2024-01-26] MEDS: NICOTINE 21MG/24HR 1 EA TRANSDERMAL TD SCH (10:31)
[2024-01-26] MEDS: PANTOPRAZOLE 40MG TAB (PROTONIX) PO SCH (10:31)
[2024-01-26] MEDS: CitaloPRAM (CeleXA) 20 MG TAB PO SCH (10:31)
[2024-01-26] MEDS: VITAMIN D 1,000 INTERNATIONAL UNITS TABLET PO SCH (10:31)
[2024-01-26] MEDS: GABAPENTIN 400MG CAP PO SCH (10:31)
[2024-01-26 18:21] VITALS: BP 130/60; TEMP 97.3
[2024-01-26] MEDS: traZODone 100 MG TAB PO SCH (20:48)
[2024-01-26] MEDS: MIRTAZAPINE 15 MG TAB PO SCH (20:48)
[2024-01-26] MEDS: QUEtiapine FUMARATE 25 MG TAB PO SCH (20:49)
[2024-01-27 06:27] VITALS: BP 122/59; TEMP 97.2; O2SAT 99
[2024-01-27] MEDS: ACETAMINOPHEN TAB 650MG DOSE (2X325MG) PO PRN (06:27)
[2024-01-27] MEDS: hydrOXYzine 50 MG TAB PO PRN (08:48)
[2024-01-27] MEDS: IBUPROFEN 400MG TAB PO PRN (08:48)
[2024-01-27 15:34] VITALS: BP 120/76; TEMP 96.2; O2SAT 99
[2024-01-28 06:19] VITALS: BP 138/73; TEMP 97; O2SAT 97
[2024-01-28 15:37] VITALS: BP 119/58; TEMP 97.5; O2SAT 98
[2024-01-29 06:19] VITALS: BP 123/61; TEMP 97.7; O2SAT 97
[2024-01-29 16:19] VITALS: BP 133/60; TEMP 98.8; O2SAT 98
[2024-01-30 05:56] VITALS: BP 122/75; TEMP 98.3; O2SAT 96
[2024-01-30 15:33] VITALS: BP 138/67; TEMP 98.2; O2SAT 98
[2024-01-31 07:01] VITALS: BP 137/65; TEMP 97.1; O2SAT 97
== END 2024-01-31 11:48 | disposition home or self-care (01) | DRG 750 ==
LOC: M ED 16:36 → M ED INP 21:23 → M PSY 23:15
PROVIDERS: ADMIT Student in an Organized Health Care Education/Training Program; ATTEND Student in an Organized Health Care Education/Training Program
DX: F20.9 Schizophrenia, unspecified (principal); R45.851 Suicidal ideations; F12.90 Cannabis use, unspecified, uncomplicated; F17.200 Nicotine dependence, unspecified, uncomplicated; F41.9 Anxiety disorder, unspecified; F60.3 Borderline personality disorder; Z88.8 Allergy status to other drugs, medicaments and biological substances; Z79.899 Other long term (current) drug therapy; K21.9 Gastro-esophageal reflux disease without esophagitis

== ENCOUNTER 2024-03-08 01:53 | Emergency (ER) | payer MEDICAID, OTHER ==
[~2024-03-08] VITALS: Ht 180.3 cm; Wt 84.9 kg
[~2024-03-08 01:53] MED LIST changes: -ARIP1TAB43 PO; +ARIP20TA51 PO; +MIRT-84 PO; +QUET50TA4 PO
[2024-03-08 02:39] LABS: BASO % 0.2 % (0.0-1.0); EOS # 0.1 10^3/uL (0.0-0.5); EOS % 0.5 % (0.0-3.0); HEMATOCRIT 45.7 % (42.0-52.0); HEMOGLOBIN 16.2 g/dl (13.5-17.5); LYMPH % 13.4 % (24.0-44.0); MEAN CORPUSCULAR HEMOGLOBIN 30.7 pg (27.0-33.0); MEAN CORPUSCULAR HGB CONC 35.4 g/dl (32.0-36.5); MEAN CORPUSCULAR VOLUME 86.6 fl (80.0-96.0); MONO # 0.7 10^3/uL (0.0-0.8); MONO % 4.6 % (2.0-8.0); NEUTROPHILS # 12.3 10^3/uL (1.5-8.5); PLATELET COUNT, AUTOMATED 249 10^3/uL (150-450); RED BLOOD COUNT 5.28 10^6/uL (4.30-6.10); WHITE BLOOD COUNT 15.2 10^3/uL (4.0-10.0)
[2024-03-08 03:07] LABS: LIPASE 26 U/L (12-53)
[2024-03-08 03:10] LABS: ALBUMIN 4.4 G/DL (3.2-5.2); ALKALINE PHOSPHATASE 71 U/L (46-116); ALT/SGPT 33 U/L (7.0-40); AST/SGOT 21 U/L (<34); BILIRUBIN,DIRECT 0.2 MG/DL (<0.4); BILIRUBIN,TOTAL 0.5 MG/DL (0.3-1.2); BLOOD UREA NITROGEN 22 MG/DL (9-23); CALCIUM LEVEL 9.3 MG/DL (8.5-10.1); CARBON DIOXIDE LEVEL 27 MMOL/L (20-31); CHLORIDE LEVEL 105 MMOL/L (98-107); CREATININE FOR GFR 1.12 MG/DL (0.70-1.30); GLOMERULAR FILTRATION RATE > 60.0 (>60); GLUCOSE, FASTING 141 MG/DL (60-100); POTASSIUM SERUM 4.4 MMOL/L (3.5-5.1); SODIUM LEVEL 139 MMOL/L (136-145); TOTAL PROTEIN 7.3 G/DL (5.7-8.2)
[2024-03-08 03:37] LABS: APPEARANCE, URINE HAZY (CLEAR); BACTERIA, URINE AUTO NEGATIVE (NEGATIVE); BILIRUBIN, URINE AUTO NEGATIVE (NEGATIVE); BLOOD, URINE BLOOD NEGATIVE (NEGATIVE); COLOR, URINE YELLOW (YELLOW); GLUCOSE, URINE (UA) AUTO NEGATIVE (NEGATIVE); KETONE, URINE AUTO 1+ mg/dL (NEGATIVE); LEUKOCYTE ESTERASE, URINE AUTO NEGATIVE (NEGATIVE); MUCUS, URINE SMALL (NEGATIVE); NITRITE, URINE AUTO NEGATIVE (NEGATIVE); PROTEIN, URINE AUTO 1+ mg/dL (NEGATIVE); RBC, URINE AUTO 0 /HPF (0-3); SQUAMOUS EPITHELIAL CELL UR AU 0 /HPF (0-6); UROBILINOGEN, URINE AUTO 0.2 mg/dL (0.0-2.0); WBC, URINE AUTO 0 /HPF (0-3)
[2024-03-08] MEDS: PANTOPRAZOLE 40MG VIAL IV ONE (05:29)
[2024-03-08] MEDS: GASTROGRAFIN SOLUTION 30ML PO SCH (05:29)
[2024-03-08] MEDS: METOCLOPRAMIDE INJ 10MG/2ML VIAL IV ONE (05:30)
[2024-03-08] MEDS ORDERED: ISOVUE-370 76% 100ML VIAL As Ordered ONE (06:11)
[2024-03-08] MEDS ORDERED: PROT1TAB2 PO (08:15)
[2024-03-08] MEDS ORDERED: AMOX875T2 PO (08:15)
[2024-03-08] MEDS: AUGMENTIN 875 MG TAB PO ONE (08:46)
[2024-03-08 09:10] VITALS: BP 135/61; TEMP 96.8; O2SAT 97
== END 2024-03-08 09:15 | disposition home or self-care (01) ==
LOC: M ED 01:53
DX: K81.0 Acute cholecystitis (principal); F32.A Depression, unspecified; K21.9 Gastro-esophageal reflux disease without esophagitis; F12.10 Cannabis abuse, uncomplicated; F17.290 Nicotine dependence, other tobacco product, uncomplicated; Z88.8 Allergy status to other drugs, medicaments and biological substances; Z79.2 Long term (current) use of antibiotics; Z79.899 Other long term (current) drug therapy
CPT/HCPCS: 74177; 76705; 80048; 80076; 81001; 83690; 85025; 96374; 96375; 99284; J2470; J2765; Q9963; Q9967

== ENCOUNTER → 2024-03-20 | Outpatient (REF) | payer OTHER, MEDICAID ==
[~2024-03-20] MED LIST changes: +AMOX875T2 PO; +PROT1TAB2 PO
[2024-03-20 18:33] LABS: CHOLESTEROL LEVEL 141 MG/DL (<200); CHOLESTEROL RISK RATIO 3.45 (<5); HDL CHOLESTEROL 40.8 MG/DL (>40); LDL CHOLESTEROL 82.2 MG/DL (<100); NON-HDL-C 100.2 MG/DL; TRIGLYCERIDES LEVEL 90 MG/DL (<150)
[2024-03-20 18:35] LABS: TOTAL 25(OH) VITAMIN D 24.8 NG/ML (20.0-100.0)
== END ==
LOC: M LAB REF 16:25
PROVIDERS: ATTEND Nurse Practitioner Family
DX: E66.3 Overweight (principal); E55.9 Vitamin D deficiency, unspecified; Z11.9 Encounter for screening for infectious and parasitic diseases, unspecified

== ENCOUNTER 2024-05-22 08:02 | Day surgery (SDC) | payer MEDICAID, OTHER ==
[~2024-05-22] VITALS: Ht 180.3 cm; Wt 96.6 kg
[~2024-05-22 08:02] MED LIST changes: +GABA-1172 PO; -GABA-282 PO; +SERO50TA PO
[2024-05-22] MEDS ORDERED: INDOCYANINE GREEN 25MG VIAL (IC-GREEN) As Ordered ONE (08:15)
[2024-05-22] MEDS ORDERED: ACETAMINOPHEN 1000MG/100ML IV BAG As Ordered ONE (08:16)
[2024-05-22] MEDS ORDERED: MIDAZOLAM INJ 2MG/2ML VIAL As Ordered ONE (08:16)
[2024-05-22] MEDS ORDERED: SUGAMMADEX SODIUM 500 MG/5 ML VIAL (BRIDION) As Ordered ONE (08:16)
[2024-05-22] MEDS ORDERED: ONDANSETRON 4MG 2ML VIAL As Ordered ONE (08:16)
[2024-05-22] MEDS ORDERED: LIDOCAINE 2% 100MG/5ML SDV (FOR ANES.) As Ordered ONE (08:16)
[2024-05-22] MEDS ORDERED: KETOROLAC 60MG 2ML VIAL As Ordered ONE (08:16)
[2024-05-22] MEDS ORDERED: fentaNYL 250 MCG/5 ML INJECTION As Ordered ONE (08:16)
[2024-05-22] MEDS ORDERED: ROCURONIUM BROMIDE 50MG/5ML VIAL As Ordered ONE (08:17)
[2024-05-22] MEDS ORDERED: propofoL 200 MG/20 ML VIAL As Ordered ONE (08:17)
[2024-05-22] MEDS ORDERED: NS 1,000 ML IV SCH ×2 (08:40→11:20)
[2024-05-22] MEDS: CelecoXIB 400 MG CAP PO ONE (09:00)
[2024-05-22] MEDS: ceFAZolin SOD 2 GM in IV 1 EA IV ONE (10:16)
[2024-05-22] MEDS ORDERED: LACRILUBE (AKWA TEARS) OPHTH OINT 3.5GM As Ordered ONE (10:27)
[2024-05-22] MEDS ORDERED: GLYCOPYRROLATE INJ 0.2 MG/ML 2 ML VIAL As Ordered ONE (10:36)
[2024-05-22] MEDS ORDERED: ePHEDrine SULFATE 25 MG/5 ML(5MG/ML) SYRINGE As Ordered ONE (10:47)
[2024-05-22] MEDS: LIDOCAINE 1% SDV 30ML VIAL As Ordered ONE (11:17)
[2024-05-22] MEDS ORDERED: fentaNYL 100 MCG/2 ML INJECTION IV PRN (11:20)
[2024-05-22] MEDS: HYDROMORPHONE HCL 0.5 MG/ 0.5 ML SYRINGE IV PRN (11:39)
[2024-05-22] MEDS: ONDANSETRON 4MG 2ML VIAL IV PRN (11:39)
[2024-05-22] MEDS: oxyCODONE 5MG TAB PO PRN (11:40)
[2024-05-22 13:25] VITALS: BP 124/57; TEMP 98; O2SAT 95
[2024-05-22] MEDS ORDERED: NORCO, ANEXSIA 5/325MG TABLET (HYDROcodone/ACETAMINOPHEN) PO PRN ×2 (13:25)
[2024-05-22] MEDS ORDERED: KETOROLAC 30 MG/ML 1ML VIAL IV SCH (15:00)
== END 2024-05-22 13:25 | disposition home or self-care (01) ==
LOC: M SDC 08:02
PROVIDERS: ATTEND Surgery
DX: K80.10 Calculus of gallbladder with chronic cholecystitis without obstruction (principal); Z88.8 Allergy status to other drugs, medicaments and biological substances; K21.9 Gastro-esophageal reflux disease without esophagitis; F17.200 Nicotine dependence, unspecified, uncomplicated; F12.10 Cannabis abuse, uncomplicated; F41.9 Anxiety disorder, unspecified; F32.A Depression, unspecified; G47.00 Insomnia, unspecified; Z79.899 Other long term (current) drug therapy
CPT/HCPCS: 47562; 88304; J0131; J0665; J0690; J1100; J1171; J1596; J1885; J2250; J2405; J3010; Q9968; S2900

== ENCOUNTER → 2024-06-29 | Outpatient (REF) | payer OTHER ==
[2024-06-29 14:49] LABS: BASO % 0.4 % (0.0-1.0); EOS # 0.2 10^3/uL (0.0-0.5); EOS % 2.1 % (0.0-3.0); HEMATOCRIT 48.6 % (42.0-52.0); HEMOGLOBIN 17.1 g/dl (13.5-17.5); LYMPH # 2.5 10^3/uL (1.5-5.0); LYMPH % 32.3 % (24.0-44.0); MEAN CORPUSCULAR HEMOGLOBIN 30.8 pg (27.0-33.0); MEAN CORPUSCULAR HGB CONC 35.2 g/dl (32.0-36.5); MEAN CORPUSCULAR VOLUME 87.4 fl (80.0-96.0); MONO # 0.5 10^3/uL (0.0-0.8); MONO % 6.8 % (2.0-8.0); NEUTROPHILS # 4.4 10^3/uL (1.5-8.5); NEUTROPHILS % 57.9 % (36.0-66.0); PLATELET COUNT, AUTOMATED 315 10^3/uL (150-450); RED BLOOD COUNT 5.56 10^6/uL (4.30-6.10); WHITE BLOOD COUNT 7.6 10^3/uL (4.0-10.0)
[2024-06-29 15:00] LABS: IRON (FE) 110 UG/DL (65-175); PERCENT SATURATION 33.2 % (19.7-50.0); TOTAL IRON BINDING CAPACITY 331 UG/DL (250-425)
[2024-06-29 15:01] LABS: ALBUMIN 4.4 G/DL (3.2-5.2); ALKALINE PHOSPHATASE 69 U/L (40-129); ALT/SGPT 40 U/L (7.0-40); AST/SGOT 22 U/L (<34); BILIRUBIN,TOTAL 0.6 MG/DL (0.3-1.2); BLOOD UREA NITROGEN 17 MG/DL (9-23); CALCIUM LEVEL 10.1 MG/DL (8.5-10.1); CARBON DIOXIDE LEVEL 27 MMOL/L (20-31); CHLORIDE LEVEL 104 MMOL/L (98-107); CHOLESTEROL LEVEL 171 MG/DL (<200); CHOLESTEROL RISK RATIO 4.06 (<5); CREATININE FOR GFR 1.08 MG/DL (0.70-1.30); GLOMERULAR FILTRATION RATE > 60.0 (>60); GLUCOSE, FASTING 89 MG/DL (60-100); HDL CHOLESTEROL 42.1 MG/DL (>40); LDL CHOLESTEROL 110.9 MG/DL (<100); NON-HDL-C 128.9 MG/DL; POTASSIUM SERUM 4.3 MMOL/L (3.5-5.1); SODIUM LEVEL 141 MMOL/L (136-145); TOTAL PROTEIN 7.7 G/DL (5.7-8.2); TRIGLYCERIDES LEVEL 90 MG/DL (<150)
== END ==
LOC: M SFHCPLAZ 11:36
PROVIDERS: ATTEND Student in an Organized Health Care Education/Training Program
DX: R19.7 Diarrhea, unspecified (principal); Z90.49 Acquired absence of other specified parts of digestive tract; K64.9 Unspecified hemorrhoids; E55.9 Vitamin D deficiency, unspecified; K29.00 Acute gastritis without bleeding

== ENCOUNTER → 2024-07-10 | Outpatient (REF) | payer OTHER | LOC: M LABDRAWC 16:36 | PROVIDERS: ATTEND Student in an Organized Health Care Education/Training Program | DX: K29.00 Acute gastritis without bleeding (principal) ==

== ENCOUNTER 2024-09-20 06:02 | Emergency (ER) | payer MEDICAID, OTHER ==
[~2024-09-20] VITALS: Ht 180.3 cm; Wt 89.5 kg
[2024-09-20] MEDS: ONDANSETRON 4MG 2ML VIAL IV ONE (07:33)
[2024-09-20 07:45] LABS: BASO % 0.3 % (0.0-1.0); EOS # 0.1 10^3/uL (0.0-0.5); HEMATOCRIT 49.6 % (42.0-52.0); HEMOGLOBIN 17.2 g/dl (13.5-17.5); LYMPH # 1.1 10^3/uL (1.5-5.0); LYMPH % 8.1 % (24.0-44.0); MEAN CORPUSCULAR HEMOGLOBIN 30.2 pg (27.0-33.0); MEAN CORPUSCULAR HGB CONC 34.7 g/dl (32.0-36.5); MEAN CORPUSCULAR VOLUME 87.2 fl (80.0-96.0); MONO # 0.7 10^3/uL (0.0-0.8); MONO % 5.4 % (2.0-8.0); NEUTROPHILS # 11.3 10^3/uL (1.5-8.5); NEUTROPHILS % 84.8 % (36.0-66.0); PLATELET COUNT, AUTOMATED 254 10^3/uL (150-450); RED BLOOD COUNT 5.69 10^6/uL (4.30-6.10); WHITE BLOOD COUNT 13.3 10^3/uL (4.0-10.0)
[2024-09-20 08:20] LABS: RSV AMPLIFICATION NEGATIVE (NEGATIVE)
[2024-09-20 08:53] LABS: ALBUMIN 4.6 G/DL (3.2-5.2); ALKALINE PHOSPHATASE 68 U/L (40-129); ALT/SGPT 42 U/L (7.0-40); AST/SGOT 24 U/L (<34); BILIRUBIN,DIRECT 0.4 MG/DL (<0.4); BILIRUBIN,TOTAL 1.6 MG/DL (0.3-1.2); BLOOD UREA NITROGEN 13 MG/DL (9-23); CALCIUM LEVEL 9.4 MG/DL (8.5-10.1); CARBON DIOXIDE LEVEL 27 MMOL/L (20-31); CHLORIDE LEVEL 105 MMOL/L (98-107); CK-MB VALUE MASS < 1.0 NG/ML (<3.6); CREATININE FOR GFR 1.03 MG/DL (0.70-1.30); GLOMERULAR FILTRATION RATE > 60.0 (>60); GLUCOSE, FASTING 101 MG/DL (60-100); SODIUM LEVEL 142 MMOL/L (136-145); TOTAL PROTEIN 7.6 G/DL (5.7-8.2)
[2024-09-20] MEDS: IPRATROPIUM 0.5MG/ALBUTEROL 2.5MG INH SOL UD 3ML (DUONEB) NEB ONE (09:16)
[2024-09-20 09:18] LABS: CPK CREATINE PHOSPHOKINASE 173 U/L (46-171); MB/CK RELATIVE INDEX 0.57 (< OR =4)
[2024-09-20] MEDS ORDERED: PRED20TA PO (09:53)
[2024-09-20] MEDS ORDERED: BENZ200C70 PO (09:55)
[2024-09-20] MEDS ORDERED: ALBU8.5H INH (09:55)
[2024-09-20 10:00] VITALS: BP 118/62; TEMP 97; O2SAT 97
== END 2024-09-20 10:08 | disposition home or self-care (01) ==
LOC: M ED 06:02
DX: J20.9 Acute bronchitis, unspecified (principal); Z20.9 Contact with and (suspected) exposure to unspecified communicable disease; K80.20 Calculus of gallbladder without cholecystitis without obstruction; F17.290 Nicotine dependence, other tobacco product, uncomplicated; Z79.899 Other long term (current) drug therapy; Z88.8 Allergy status to other drugs, medicaments and biological substances
CPT/HCPCS: 71046; 80048; 80076; 82550; 82553; 83605; 84484; 85025; 87631; 93005; 94640; 94760; 96374; 99284; J2405

== ENCOUNTER → 2024-10-26 | Outpatient (CLI) | payer OTHER, MEDICAID ==
[~2024-10-26] MED LIST changes: +ALBU8.5H INH; +PRED20TA PO
== END ==
LOC: M SOG 08:16
PROVIDERS: ATTEND Physician Assistant
DX: M79.641 Pain in right hand (principal); Z53.9 Procedure and treatment not carried out, unspecified reason

== ENCOUNTER → 2024-11-10 | Outpatient (CLI) | payer OTHER | LOC: M PLARAD 08:58 | PROVIDERS: ATTEND Physician Assistant | DX: S53.31XA Traumatic rupture of right ulnar collateral ligament, initial encounter (principal); M25.441 Effusion, right hand ==

== ENCOUNTER 2024-11-22 10:51 | Day surgery (SDC) | payer OTHER ==
[~2024-11-22] VITALS: Ht 180.3 cm; Wt 83.2 kg
[~2024-11-22 10:51] MED LIST changes: +CHOL4POW26 PO; +TRAZ1TAB14 PO
[2024-11-22] MEDS ORDERED: GLYCOPYRROLATE INJ 0.2 MG/ML 2 ML VIAL As Ordered ONE (12:15)
[2024-11-22] MEDS ORDERED: LIDOCAINE 2% 100MG/5ML SDV (FOR ANES.) As Ordered ONE (12:20)
[2024-11-22] MEDS ORDERED: propofoL 200 MG/20 ML VIAL As Ordered ONE (12:20)
[2024-11-22 12:43] VITALS: TEMP 97.8
[2024-11-22 13:22] VITALS: BP 136/62; O2SAT 97
== END 2024-11-22 13:28 | disposition home or self-care (01) ==
LOC: M OPP 10:51
PROVIDERS: ATTEND Internal Medicine Gastroenterology
DX: K64.0 First degree hemorrhoids (principal); R10.13 Epigastric pain; R19.7 Diarrhea, unspecified; R63.4 Abnormal weight loss; K22.89 Other specified disease of esophagus; K44.9 Diaphragmatic hernia without obstruction or gangrene; Z88.8 Allergy status to other drugs, medicaments and biological substances; Z79.899 Other long term (current) drug therapy
CPT/HCPCS: 43239; 45378; 88305; J1596

== ENCOUNTER 2025-03-21 10:02 | Day surgery (SDC) | payer OTHER ==
[~2025-03-21] VITALS: Ht 180.3 cm; Wt 90.7 kg
[~2025-03-21 10:02] MED LIST changes: +ALBU8.5H; +BACL5TAB2 PO; +HYDR-3363 PO; +HYDR-3364 PO; +OLAN1TAB20 PO
[2025-03-21] MEDS ORDERED: dexAMETHasone 4 MG/ML 1 ML VIAL As Ordered ONE (10:03)
[2025-03-21] MEDS ORDERED: ACETAMINOPHEN 1000MG/100ML IV BAG As Ordered ONE (10:03)
[2025-03-21] MEDS ORDERED: ONDANSETRON 4MG 2ML VIAL As Ordered ONE (10:03)
[2025-03-21] MEDS ORDERED: LIDOCAINE 2% 100 MG/5 ML SDV (FOR ANES.) As Ordered ONE (10:03)
[2025-03-21] MEDS ORDERED: LR 1,000 ML IV SCH (10:45)
[2025-03-21] MEDS: MIDAZOLAM INJ 2 MG/2 ML VIAL IV PRN (11:46)
[2025-03-21] MEDS: dexAMETHasone 10 MG/1 ML VIAL PRES.FREE PN ONE (11:49)
[2025-03-21] MEDS: LIDOCAINE 1% SDV 5 ML VIAL PN ONE (11:49)
[2025-03-21] MEDS: ROPIvacaine 0.5% 30ML VIAL PN ONE (11:49)
[2025-03-21] MEDS ORDERED: PHENYLephrine 500MCG 5ML (100MCG/ML) SYRINGE As Ordered ONE (13:55)
[2025-03-21] MEDS ORDERED: KETOROLAC 30 MG/ML 1 ML VIAL As Ordered ONE (13:58)
[2025-03-21] MEDS ORDERED: ONDANSETRON 4MG 2ML VIAL IV PRN (14:30)
[2025-03-21] MEDS ORDERED: HYDROMORPHONE HCL 0.5 MG/0.5 ML SYRINGE IV PRN (14:30)
[2025-03-21] MEDS ORDERED: traMADol 50 MG TAB PO ONE (14:30)
[2025-03-21] MEDS ORDERED: PERCOCET PO (14:33)
[2025-03-21 15:31] VITALS: BP 128/63; TEMP 97.8; O2SAT 98
== END 2025-03-21 15:37 | disposition home or self-care (01) ==
LOC: M SDC 10:02
PROVIDERS: ATTEND Orthopaedic Surgery Hand Surgery
DX: M24.241 Disorder of ligament, right hand (principal); K21.9 Gastro-esophageal reflux disease without esophagitis; F32.A Depression, unspecified; F41.9 Anxiety disorder, unspecified; Z79.899 Other long term (current) drug therapy; Z88.8 Allergy status to other drugs, medicaments and biological substances; F17.290 Nicotine dependence, other tobacco product, uncomplicated
CPT/HCPCS: 26540; 76000; C1713; J0131; J0665; J0690; J1100; J1885; J2250; J2371; J2405; J2795; J3010

== ENCOUNTER → 2025-04-03 | Outpatient (CLI) | payer OTHER, MEDICAID ==
[~2025-04-03] MED LIST changes: +PERCOCET PO
== END ==
LOC: M SOG 06:55
PROVIDERS: ATTEND Physician Assistant
DX: M25.641 Stiffness of right hand, not elsewhere classified (principal)

== ENCOUNTER → 2025-05-04 | Outpatient (CLI) | payer OTHER, MEDICAID | LOC: M SOG 07:21 | PROVIDERS: ATTEND Physician Assistant | DX: M25.641 Stiffness of right hand, not elsewhere classified (principal) ==

== ENCOUNTER → 2025-05-15 | Outpatient (CLI) | payer OTHER ==
[2025-05-15 15:37] LABS: PLATELET COUNT, AUTOMATED 284 10^3/uL (150-450)
[2025-05-15 15:45] LABS: ALT/SGPT 29 U/L (7.0-40); AST/SGOT 15 U/L (<34); CALCIUM LEVEL 9.0 MG/DL (8.5-10.1); CARBON DIOXIDE LEVEL 30 MMOL/L (20-31); CHLORIDE LEVEL 107 MMOL/L (98-107); CHOLESTEROL LEVEL 155 MG/DL (<200); CHOLESTEROL RISK RATIO 3.76 (<5); CREATININE FOR GFR 1.05 MG/DL (0.70-1.30); GLOMERULAR FILTRATION RATE > 90.0 (>60); LDL CHOLESTEROL 70.0 MG/DL (<100); NON-HDL-C 113.8 MG/DL; POTASSIUM SERUM 4.4 MMOL/L (3.5-5.1); SODIUM LEVEL 146 MMOL/L (136-145); TRIGLYCERIDES LEVEL 219 MG/DL (<150)
[2025-05-15 16:10] LABS: ESTIMATED AVERAGE GLUCOSE 103.0 MG/DL (60-110)
[2025-05-16 17:01] LABS: CREATININE, URINE 219.2 MG/DL
[2025-05-16 17:34] LABS: MALB URINE SIEMENS 4.0 MG/L; MAU/CREAT RATIO 1.8 MCG/MG (0.0-30.0)
== END ==
LOC: M PLALAB 12:21
PROVIDERS: ATTEND Family Medicine
DX: F20.9 Schizophrenia, unspecified (principal); E11.9 Type 2 diabetes mellitus without complications

== ENCOUNTER → 2025-05-15 | Outpatient (REF) | payer OTHER | LOC: M SFHCPLAZ 12:00 | PROVIDERS: ATTEND Family Medicine | DX: Z53.9 Procedure and treatment not carried out, unspecified reason (principal) ==